=== PATIENT | male | born 1955 | race Caucasian/White ===

== ENCOUNTER → 2016-09-26 | Outpatient (CLI) | payer OTHER ==
[2016-09-26 13:31] LABS: BLOOD UREA NITROGEN 13 mg/dl (7-18); BUN/CREATININE RATIO 11.7 (10-20); CALCIUM 8.8 mg/dl (8.5-10.1); CARBON DIOXIDE 27 mmol/L (21-32); CHLORIDE 102 mmol/L (98-107); GLUCOSE 208 mg/dl (70-99); POTASSIUM 4.3 mmol/L (3.5-5.1); SODIUM 139 mmol/L (136-145)
== END | disposition home or self-care (01) ==
LOC: C.LABBC 11:23
PROVIDERS: ATTEND Family Medicine
DX: I10 Essential (primary) hypertension (principal)

== ENCOUNTER → 2017-02-07 | Outpatient (CLI) | payer OTHER ==
[2017-02-07 11:41] LABS: ALT/SGPT 35 U/L (12-78); AST/SGOT 19 U/L (15-37); BLOOD UREA NITROGEN 16 mg/dl (7-18); BUN/CREATININE RATIO 17.3 (10-20); CALCIUM 8.2 mg/dl (8.5-10.1); CARBON DIOXIDE 30 mmol/L (21-32); CHLORIDE 108 mmol/L (98-107); CREATININE 0.93 mg/dl (0.60-1.40); GLUCOSE 101 mg/dl (70-99); POTASSIUM 4.1 mmol/L (3.5-5.1); SODIUM 143 mmol/L (136-145)
[2017-02-07 11:46] LABS: ALB/GLOB RATIO 1.3 (0.9-2); ALKALINE PHOSPHATASE 40 U/L (45-117); CHOLESTEROL 269 mg/dl (0-200); CHOLESTEROL/HDL RATIO 4.9; HDL CHOLESTEROL 55 mg/dl; LDL CHOLESTEROL CALCULATED 189 mg/dl; PROSTATE SPECIFIC ANTIGEN 0.462 ng/ml (0.000-4.000); TRIGLYCERIDES 127 mg/dl (0-150); VERY LOW DENSITY LIPOPROT CALC 25 mg/dl
== END | disposition home or self-care (01) ==
LOC: C.LABBC 08:26
PROVIDERS: ATTEND Family Medicine
DX: Z12.5 Encounter for screening for malignant neoplasm of prostate (principal); I10 Essential (primary) hypertension; E78.5 Hyperlipidemia, unspecified

== ENCOUNTER → 2017-09-13 | Outpatient (CLI) | payer OTHER ==
[2017-09-13 11:32] LABS: ALBUMIN 3.7 gm/dl (3.4-5.0); ALT/SGPT 35 U/L (12-78); BLOOD UREA NITROGEN 15 mg/dl (7-18); CALCIUM 8.9 mg/dl (8.5-10.1); CARBON DIOXIDE 31 mmol/L (21-32); CHOLESTEROL 240 mg/dl (0-200); CREATININE 0.96 mg/dl (0.60-1.40); GLUCOSE 113 mg/dl (70-99); SODIUM 140 mmol/L (136-145)
[2017-09-13 11:34] LABS: ALKALINE PHOSPHATASE 38 U/L (45-117); AST/SGOT 21 U/L (15-37); LDL CHOLESTEROL CALCULATED 172 mg/dl
== END | disposition home or self-care (01) ==
LOC: C.LABBC 07:49
PROVIDERS: ATTEND Internal Medicine
DX: M25.50 Pain in unspecified joint (principal); E78.5 Hyperlipidemia, unspecified; I10 Essential (primary) hypertension

== ENCOUNTER → 2017-11-26 | Outpatient (CLI) | payer OTHER ==
[2017-11-26 11:02] LABS: ALBUMIN 3.6 gm/dl (3.4-5.0); ALT/SGPT 42 U/L (12-78); AST/SGOT 26 U/L (15-37); BLOOD UREA NITROGEN 15 mg/dl (7-18); CALCIUM 8.3 mg/dl (8.5-10.1); CARBON DIOXIDE 30 mmol/L (21-32); CHOLESTEROL 187 mg/dl (0-200); CREATININE 0.99 mg/dl (0.60-1.40); GLUCOSE 145 mg/dl (70-99); LDL CHOLESTEROL CALCULATED 122 mg/dl; SODIUM 139 mmol/L (136-145); TOTAL PROTEIN 6.5 gm/dl (6.4-8.2)
[2017-11-26 11:03] LABS: ALKALINE PHOSPHATASE 37 U/L (45-117)
== END | disposition home or self-care (01) ==
LOC: C.LABBC 08:03
PROVIDERS: ATTEND Internal Medicine
DX: I10 Essential (primary) hypertension (principal)

== ENCOUNTER → 2018-04-01 | Outpatient (CLI) | payer OTHER ==
[2018-04-01 10:36] LABS: BASO % 0.5 %; BASO ABS # 0.03 K/uL (0-0.2); EOS % 2.2 %; EOS ABS # 0.12 K/uL (0-0.5); HEMATOCRIT 41.9 % (42-52); HEMOGLOBIN 13.9 g/dL (14.0-18.0); IG# 0.01 K/uL (0.00-0.02); LYMPH % 31.1 %; LYMPH ABS # 1.71 K/uL (1.2-3.4); MEAN CELL VOLUME 86.2 fL (80-100); MEAN CORPUSCULAR HEMOGLOBIN 28.6 pg (25-34); MEAN CORPUSCULAR HGB CONC 33.2 g/dl (32-36); MEAN PLATELET VOLUME 9.3 fL (7.4-10.4); MONO % 9.1 %; NEUT % 56.9 %; NEUT ABS # 3.12 K/uL (1.4-6.5); PLATELET COUNT 280 K/uL (130-400); RED CELL DISTRIBUTION WIDTH CV 13.2 % (11.5-14.5); RED CELL DISTRIBUTION WIDTH SD 41.3 fL (36.4-46.3); WHITE BLOOD COUNT 5.49 K/uL (4.8-10.8)
[2018-04-01 10:52] LABS: ALBUMIN 3.7 gm/dl (3.4-5.0); ALKALINE PHOSPHATASE 38 U/L (45-117); ALT/SGPT 38 U/L (12-78); AST/SGOT 27 U/L (15-37); BLOOD UREA NITROGEN 15 mg/dl (7-18); CALCIUM 8.5 mg/dl (8.5-10.1); CARBON DIOXIDE 29 mmol/L (21-32); CHOLESTEROL 223 mg/dl (0-200); CREATININE 0.93 mg/dl (0.60-1.40); GLUCOSE 96 mg/dl (70-99); LDL CHOLESTEROL CALCULATED 147 mg/dl; POTASSIUM 4.1 mmol/L (3.5-5.1); SODIUM 139 mmol/L (136-145)
[2018-04-01 11:01] LABS: HEMOGLOBIN A1C 5.6 % (4.5-5.6)
== END | disposition home or self-care (01) ==
LOC: C.LABBC 07:59
PROVIDERS: ATTEND Internal Medicine
DX: E78.5 Hyperlipidemia, unspecified (principal); I10 Essential (primary) hypertension; Z11.59 Encounter for screening for other viral diseases; R73.01 Impaired fasting glucose

== ENCOUNTER → 2018-04-07 | Outpatient (CLI) | payer OTHER ==
--- NOTE | 2018-04-07 12:07 | DIAGNOSTIC IMAGING REPORT ---
C-SPINE ROUTINE 4 OR 5 VIEWS HISTORY: 63 years-old Male CERVICALGIA acute neck pain without reported trauma COMPARISON: None available TECHNIQUE: 5 views of the cervical spine FINDINGS: Moderate intervertebral disc space narrowing at C5-C6 with mild disc space narrowing at C3-C4. Multilevel spondylitic spurring with mild facet arthrosis. Degenerative changes result in at least mild right-sided foraminal stenosis at C3-C4. No acute fracture or subluxation. Imaged lung apices appear clear. No prevertebral soft tissue swelling. IMPRESSION: 1. No acute fracture or subluxation. 2. Degenerative changes as above including moderate intervertebral disc space narrowing at C5-C6. The above report was generated using voice recognition software. It may contain grammatical, syntax or spelling errors. Electronically signed by: Bowen Singer M.D. 04/07/2018 12:05 PM Dictated Date/Time: 04/07/2018 12:04 PM
== END | disposition home or self-care (01) ==
LOC: C.RADBC 11:39
PROVIDERS: ATTEND Internal Medicine
DX: M54.2 Cervicalgia (principal)

== ENCOUNTER 2023-08-12 19:42 | Inpatient (IN) ==
--- OUTSIDE RECORDS SUMMARY | 2023-08-12 19:46 | External Medical Summary | Continuity of Care Document ---
Author Name Unknown Organization [facility] [address] [facility] 2 [address] [id number] Care Team Providers Care [employer] Dean Name Role Phone Shanjose angelAlex Primary Care Physician [id number] Encounter [facility] [id number] Date(s): 04/02/23 - 04/02/23 [facility] [address] [facility] [address] [phone] [place] Discharge Disposition: Home or Self Care Attending Physician: MD [place] Cassandra Allergies, Adverse Reactions, Alerts Substance Reaction Severity Status Augmentin hives Active Medications Citrucel Start: 01/06/16 11:08:00, 2 g =, PO, bid Start Date: 01/06/16 Status: Ordered clobetasol 0.05% topical cream Start: 09/04/19 9:54:00 EST, 1 appl, topical, bid, Disp# 60 g, Refills: 1, apply to dermatitis on the trunk as needed, Pharmacy: [facility]/pharmacy #[id number] Start Date: 09/04/19 Stop Date: 10/02/19 Status: Ordered Crestor Start: 09/02/18 9:06:00 EST, 5 mg =, PO, qhs Start Date: 09/02/18 Status: Ordered doxycycline hyclate 100 mg oral tablet Start: 11/18/22 12:07:00 EDT, 1 tab, PO, bid, Disp# 60 tab, Refills: 2, take with food for rosacea flares, Pharmacy: [facility]/pharmacy #[id number] Start Date: 11/18/22 Stop Date: 02/16/23 Status: Ordered Multiple Vitamins oral capsule Start: 04/26/17 14:25:00, 1 cap, PO, Daily Start Date: 04/26/17 Status: Ordered mupirocin 2% topical ointment Start: 09/04/19 9:53:00 EST, See Instructions, Disp# 15 g, Refills: 1, apply to open areas as needed, Pharmacy: [facility][id number] Start Date: 09/04/19 Status: Ordered triamcinolone 0.1% topical cream Start: 11/01/17 12:12:00, 1 appl, topical, bid, Disp# 454 g, Refills: 0, apply to dermatitis on trunk,arms,legs, Pharmacy: [facility][id number] Start Date: 11/01/17 Status: Ordered Mental Status 04/02/23 Barriers to Learning one year None evide nt Mandatory Health Literacy Documentation Yes Health Literacy Communication Barriers N ever Primary Language Mohawk Problem List Condition Confirmation Course Effective Dates Status Health St atus Informant Nail fungus Confirmed Active Rosacea Confirmed Active Nevus Confirmed Active Skin lesion Confirmed Active Weight disorder Confirmed Active Procedures Procedure Date Related Diagnosis Body Site Status Punch biopsy 1 11/15/22 Completed Shave biopsy 2 04/26/22 Completed Colonoscopy 3 04/19/22 Completed Esophagogastroduodenoscopy 4 04/19/22 Completed Excision 5 03/29/22 Completed Excision 01/30/22 Completed Shave biopsy 6 12/21/21 Completed Excision 01/26/21 Completed Shave biopsy 7 01/11/21 Completed Shave biopsy and cauterization of skin 04/26/17 Completed Punch biopsy of skin 05/25/14 Comp leted Shave biopsy of skin 05/25/14 Comp leted 1left calf 2right volar wrist 3COLO to TI, hemorrhoids, repeat colo 5 years. 4EGD anntrum nl, gastric polyps bx of one 5excision of incendtal compound dysplastic nevi with moderate atypia right mid lower back 6right lower back 7posterior neck Social History Social History Type Response Smoking Status Never smoked cigaret barb Sex Male Patient Care team information Care Team Personnel Name: MD Tapia Paul Position: Referring DIRECT Member Role: Primary Care Provider Address: Address: [address] [place] [address] Care Team Related Persons Name: PHUONG TRAN Address: [address] [id number]
[2023-08-12] MEDS ORDERED: SODIUM CHLORIDE 0.9% 1,000 ML IV STA (20:03)
[2023-08-12 20:19] LABS: Basophils # (auto) 0.02 K/uL (0.00-0.20); Basophils % (auto) 0.2 %; Hematocrit (blood only) 43.2 % (42.0-52.0); Hemoglobin 14.3 g/dl (14.0-18.0); Immature Granulocytes # (auto) 0.03 K/uL (0.01-0.20); Immature Granulocytes % (auto) 0.3 %; Lymphocytes # (auto) 1.43 K/uL (1.20-3.40); Lymphocytes % (auto) 12.5 %; Mean Corpuscular Hemoglobin 26.1 pg (25.0-34.0); Mean Corpuscular Hgb Conc 33.1 g/dL (32.0-36.0); Mean Platelet Volume 8.8 fL (9.4-12.4); Monocytes # (auto) 0.51 K/uL (0.11-0.59); Monocytes % (auto) 4.5 %; Neutrophils # (auto) 9.46 K/uL (1.40-6.50); Neutrophils % (auto) 82.5 %; Platelet Count 299 K/uL (130-400); RDW Coefficient of Variation 13.5 % (11.5-14.5); RDW Standard Deviation 38.3 fL (36.4-46.3); Red Blood Count 5.47 M/uL (4.70-6.10); White Blood Count 11.45 K/ul (4.8-10.8)
[2023-08-12 20:34] LABS: Albumin Globulin Ratio 1.6 (0.9-2); Albumin Level 4.4 gm/dl (3.4-5.0); BUN Creatinine Ratio 16.7 (10-20); Bilirubin,Total 0.7 mg/dl (0.2-1.0); Calcium 9.1 mg/dl (8.6-10.3); Creatinine Clr Calc Pharmacy 88.3 ml/min; Est GFR (African American) 102.1 ml/min; Est GFR (Non-African American) 88.1 ml/min; Globulin 2.8 gm/dl (2.5-4.0); Total Protein 7.2 gm/dl (6.0-8.3)
--- NOTE | 2023-08-12 21:14 | Emergency Department Note ---
Impression & Plan SBO (small bowel obstruction), Abdominal pain ED Provider Note HISTORY OF PRESENT ILLNESS: Patient is a 68-year-old male presenting with epigastric abdominal pain and vomiting. Patient reports that he "has not felt well" since 12 noon. States that he vomited earlier today. He states that he has some discomfort in his epigastric region and diffusely across his abdomen. Denies any history of abdominal surgeries. Denies any fevers. Denies any diarrhea. Denies any recent sick contact exposures. He reports that he has been laid up in bed all day secondary to feeling generally unwell. ROS: as above PHYSICAL EXAM: Constitutional: Patient appears in no acute distress. HENT: Head: Normocephalic and atraumatic. Eyes: EOMI, PERRL Mouth/Throat: Mucous membranes moist. Neck: Trachea midline. Neck supple. Cardiovascular: RRR, No murmurs, rubs or gallops. Intact distal pulses. Pulmonary/Chest: No respiratory distress. Breath sounds clear and equal bilaterally. No wheezes or rales. Abdominal: Abdomen soft, no rebound or guarding. Generalized tenderness to palpation. Musculoskeletal: No edema, tenderness or deformity noted. Skin: Warm and dry. No rash, erythema, pallor or cyanosis Psychiatric: Appropriate mood and affect for situation. Neurological: Alert and keenly responsive. CN II-XII grossly intact, moving all extremities equally and fully. MDM: - Vitals signs stable. - History obtained via patient. Patient presents with epigastric abdominal pain and vomiting. Patient reports has not been feeling well since noon today. He vomited earlier today. Denies any history of abdominal surgeries. Denies any fevers or diarrhea - Chronic conditions affecting care: HTN; HLD; hypothyroidism - Differential diagnoses include, but are not limited to: viral syndrome; small bowel obstruction; colitis; cholecystitis; appendicitis - Order placed for continuous cardiac monitoring. At this time, monitor showed rate of 83 bpm with normal sinus rhythm, per my interpretation. - External medical records reviewed. Primary care visit note dated 01/28/2022 was reviewed. Patient had been evaluated for left mid quadrant abdominal pain. He had a referral to GI at that time. - Laboratory workup interpreted by myself showed leukocytosis (WBC 12.42) with left shift; slight leukocytosis (WBC 11.45); stable electrolytes; normal lipase - UA negative for infection - CT abdomen/pelvis with IV contrast showed mild to moderate small bowel obstruction with transition point - Patient given 1L NS and 4 mg IV zofran. On reassessment, patient has not vomited since being here. - Discussed results with patient. He has not vomited since being here, so held off on NG tube at this time. - Discussion was had with medical care manager about patient's case and need for admission - Hospitalist, Dr. Rodríguez, consulted for admission - Patient admitted [facility] for further evaluation and management. ASSESSMENT AND PLAN: Diagnosis: small bowel obstruction; abdominal pain Plan: admit Past Med/Surg History Medical History Arthralgia of multiple sites Back pain Cervicalgia Elevated fasting glucose High frequency hearing loss of both ears History of malignant melanoma HTN (hypertension) Hyperglycemia Hyperlipidemia Hypothyroidism Rosacea Tinnitus Surgical History History of arthroscopic knee surgery Family History Father Coronary heart disease Dyslipidemia FERN (obstructive sleep apnea) Myocardial infarction Brother Hypertension Mother Hay fever Sister Hypertension Other No pertinent family history Denies family history of Ovarian cancer Prostate cancer Breast cancer Colorectal cancer Social History Smoking Status: Never smoker Second Hand Exposure: No; Do You Dip or Chew Tobacco: No; Hx Alcohol Use: Yes Alcohol type: wine Alcohol Intake Frequency: 2-3 x/Week Alcohol Intake Frequency Comment: weekends he drinks Hx Substance Use: No Preferred Language: Swiss Visual Impairment: Limited Hearing Ability: Normal marital status: Current Living Situation: Spouse current occupational status: employed current occupation: [employer] How many Children do You have: 2 Feels Safe at Home: Yes Childhood Exposure to Second-Hand Smoke: No caffeine: Yes (coffee) Dental Care, Regularly: Yes Physical Activity Frequency: 3-4 Times per Week Seatbelt Use: always Sunscreen Use: Yes Allergies Allergies Allergy/AdvReac Type Severity Reaction Status Date / Time hydrochlorothiazide Allergy Unknown Rash Verified 01/30/23 15:00 amoxicillin [From Augmentin] AdvReac Rash Unverified 01/30/23 15:00 clavulanic acid AdvReac Rash Unverified 01/30/23 15:00 [From Augmentin] Home Meds Home Medications Medication Instructions Recorded Confirmed famotidine 10 mg tablet 10 mg PO BID 01/30/23 01/30/23 Previous Rx's Medication Instructions Recorded levothyroxine 25 mcg tablet 25 mcg PO DAILY #90 tabs 01/22/23 gabapentin 300 mg capsule See Rx Instructions .Route 03/20/23 .COMPLEX #30 caps rosuvastatin 5 mg tablet See Rx Instructions .Route 03/20/23 .COMPLEX #90 tabs omeprazole 40 mg capsule,delayed 40 mg PO DAILY #90 caps 04/08/23 release Results & Data (ED) Vital Signs Vital Signs - 24 hr 08/12/23 19:48 08/12/23 22:37 08/12/23 22:40 Temperature 36.4 C L Temperature Source Temporal Artery Scan Pulse Rate 76 79 Pulse Rate [Apical] 82 Pulse Rhythm [Apical] Regular Pulse Strength [Apical] Normal Respiratory Rate 18 16 Respiratory Effort / Characteristics Non-Labored Spontaneous Respiratory Depth Normal Normal Respiratory Pattern Regular Blood Pressure 122/60 Blood Pressure [Right Arm] 164/84 H Blood Pressure Mean 80 Blood Pressure Mean [Right Arm] 110 Blood Pressure Position [Right Arm] Semi-fowlers Pulse Oximetry 96 97 Oxygen Delivery Method Room Air Room Air Sepsis Recent Fever Within 48 Hours No Sepsis New/Unexplained Change in Mental Status No Sepsis Action Taken by Nursing No Action Required Laboratory Data 08/12/23 20:05 08/12/23 20:05 Lab Results 08/12/23 08/12/23 Range/Units 20:05 21:38 WBC 11.45 H (4.8-10.8) K/ul RBC 5.47 (4.70-6.10) M/uL Hgb 14.3 (14.0-18.0) g/dl Hct 43.2 (42.0-52.0) % MCV 79.0 L (80.0-100.0) fL MCH 26.1 (25.0-34.0) pg MCHC 33.1 (32.0-36.0) g/dL RDW Std Deviation 38.3 (36.4-46.3) fL RDW Coeff of Bette 13.5 (11.5-14.5) % Plt Count 299 (130-400) K/uL MPV 8.8 L (9.4-12.4) fL Immature Gran % (Auto) 0.3 % Neut % (Auto) 82.5 % Lymph % (Auto) 12.5 % [place] % (Auto) 4.5 % Eos % (Auto) 0.0 % Baso % (Auto) 0.2 % Neut # (Auto) 9.46 H (1.40-6.50) K/uL Lymph # (Auto) 1.43 (1.20-3.40) K/uL [place] # (Auto) 0.51 (0.11-0.59) K/uL Eos # (Auto) 0.00 (0.00-0.50) K/uL Baso # (Auto) 0.02 (0.00-0.20) K/uL Immature Gran # (Auto) 0.03 (0.01-0.20) K/uL Sodium 138 (136-145) mmol/L Potassium 4.0 (3.5-5.1) mmol/L Chloride 102 (98-107) mmol/L Carbon Dioxide 26 (21-32) mmol/L Anion Gap 10 (3-11) BUN 15 (6-23) mg/dl Creatinine 0.90 (0.6-1.4) mg/dl Est Cr Clr Drug Dosing 88.3 ml/min Est GFR ( Amer) 102.1 ml/min Est GFR (Non-Af Amer) 88.1 ml/min BUN/Creatinine Ratio 16.7 (10-20) Glucose 159 H (70-99(Fasting)) mg/dl Calcium 9.1 (8.6-10.3) mg/dl Total Bilirubin 0.7 (0.2-1.0) mg/dl AST 27 (13-39) U/L ALT 28 (7-52) U/L Alkaline Phosphatase 43 (34-104) U/L Total Protein 7.2 (6.0-8.3) gm/dl Albumin 4.4 (3.4-5.0) gm/dl Globulin 2.8 (2.5-4.0) gm/dl Albumin/Globulin Ratio 1.6 (0.9-2) Lipase 18 (11-82) U/L Urine Color Yellow Urine Appearance Clear (Clear) Urine pH 6.5 (4.5-7.5) Ur Specific [place] 1.028 (1.000-1.030) Urine Protein 1+ H (Negative) Urine Glucose (UA) Negative (Negative) Urine Ketones 3+ H (Negative) Urine Blood Negative (Negative) Urine Nitrite Negative (Negative) Urine Bilirubin Negative (Negative) Urine Urobilinogen Negative (Negative) Ur Leukocyte Esterase Negative (Negative) Urine WBC (Auto) 1-5 (0-5) /hpf Urine RBC (Auto) 0-4 (0-4) /hpf U Hyaline Cast (Auto) 1-5 (0-5) /lpf U Epithel Cells (Auto) >30 H (0-5) /lpf Urine Bacteria (Auto) Negative (Negative) Ur Renal Epithelial Cell Not Reportable Urine Mucus Present A (None Prsent) Administered Medications Discontinued Medications Sodium Chloride (Nss) 1,000 mls @ 999 mls/hr IV .Q1H1M STA Stop: 08/12/23 21:03 Last Admin: 08/12/23 20:42 Dose: 999 mls/hr Documented By: KAILYN Ioversol (Optiray 320 500ml) 80 ml IV ONCE ONE Stop: 08/12/23 21:25 Last Admin: 08/12/23 21:25 Dose: 80 ml Documented By: CHRISTOPHER Imaging Data Radiologist's Impression: Abdomen/Pelvis CT 08/12/23 21:12 Exam(s): CT ABDOMEN + PELVIS With Contrast IV Amt: 80ML OPTIRAY 320 EXAM: CT Abdomen and Pelvis With Intravenous Contrast CLINICAL HISTORY: Reason for exam: epigastric pain; vomiting. TECHNIQUE: Axial computed tomography images of the abdomen and pelvis with intravenous contrast. CTDI is 25.92 mGy and DLP is 1329.7 mGy-cm. Automated exposure control was utilized for the study. A dose lowering technique was utilized adhering to the principles of ALARA. CONTRAST: Patient received 80ML OPTIRAY 320 of IV contrast COMPARISON: No relevant prior studies available. FINDINGS: Lung bases: Unremarkable. No mass. No consolidation. ABDOMEN: Liver: Unremarkable. No mass. Gallbladder and bile ducts: Unremarkable. No calcified stones. No ductal dilation. Pancreas: Unremarkable. No mass. No ductal dilation. Spleen: Unremarkable. No splenomegaly. Adrenals: Unremarkable. No mass. Kidneys and ureters: Unremarkable. No solid mass. No hydronephrosis. Stomach and bowel: Mild to moderate small bowel obstruction with a transition in the midline pelvis. Trace free fluid within the dependent pelvis likely reactive in nature. No mucosal thickening. PELVIS: Appendix: No findings to suggest acute appendicitis. Bladder: Unremarkable. No mass. Reproductive: Unremarkable as visualized. ABDOMEN and PELVIS: Intraperitoneal space: No free air. Bones/joints: No acute fracture. No dislocation. Soft tissues: Unremarkable. Vasculature: Unremarkable. No abdominal aortic aneurysm. Lymph nodes: Unremarkable. No enlarged lymph nodes. IMPRESSION: Mild to moderate small bowel obstruction with transition point in the midline pelvis Electronically signed by: Sigifredo Teran MD 08/12/23 21:37 PM Discharge Plan Visit Data Chief Complaint: GI Assessment Stated Complaint: ABDOMINAL PAIN, VOMITING ED Provider: Glenny Gordon Discharge Problem: SBO (small bowel obstruction), Abdominal pain Forms Stand Alone Forms: [facility] [employer] Info Prescriptions Prescriptions: No Action levothyroxine 25 mcg tablet 25 mcg PO DAILY Qty: 90 2RF rosuvastatin 5 mg tablet See Rx Instructions .ROUTE .COMPLEX Qty: 90 3RF Dose Instruction: TAKE 1 TABLET BY MOUTH EVERY DAY Rx Instructions: TAKE 1 TABLET BY MOUTH EVERY DAY gabapentin 300 mg capsule See Rx Instructions .ROUTE .COMPLEX Qty: 30 5RF Dose Instruction: TAKE 1 CAPSULE BY MOUTH AT BEDTIME NEEDED FOR NEUROPATHY Rx Instructions: TAKE 1 CAPSULE BY MOUTH AT BEDTIME NEEDED FOR NEUROPATHY omeprazole 40 mg capsule,delayed release(DR/EC) 40 mg PO DAILY Qty: 90 3RF famotidine 10 mg tablet 10 mg PO BID Referrals Referrals: Radha Bowens [[employer]] -
[2023-08-12] MEDS ORDERED: OPTIRAY 320 500ml IV ONE (21:24)
--- NOTE | 2023-08-12 21:38 | CT Scan Report ---
Exam(s): CT ABDOMEN + PELVIS With Contrast IV Amt: 80ML OPTIRAY 320 EXAM: CT Abdomen and Pelvis With Intravenous Contrast CLINICAL HISTORY: Reason for exam: epigastric pain; vomiting. TECHNIQUE: Axial computed tomography images of the abdomen and pelvis with intravenous contrast. CTDI is 25.92 mGy and DLP is 1329.7 mGy-cm. Automated exposure control was utilized for the study. A dose lowering technique was utilized adhering to the principles of ALARA. CONTRAST: Patient received 80ML OPTIRAY 320 of IV contrast COMPARISON: No relevant prior studies available. FINDINGS: Lung bases: Unremarkable. No mass. No consolidation. ABDOMEN: Liver: Unremarkable. No mass. Gallbladder and bile ducts: Unremarkable. No calcified stones. No ductal dilation. Pancreas: Unremarkable. No mass. No ductal dilation. Spleen: Unremarkable. No splenomegaly. Adrenals: Unremarkable. No mass. Kidneys and ureters: Unremarkable. No solid mass. No hydronephrosis. Stomach and bowel: Mild to moderate small bowel obstruction with a transition in the midline pelvis. Trace free fluid within the dependent pelvis likely reactive in nature. No mucosal thickening. PELVIS: Appendix: No findings to suggest acute appendicitis. Bladder: Unremarkable. No mass. Reproductive: Unremarkable as visualized. ABDOMEN and PELVIS: Intraperitoneal space: No free air. Bones/joints: No acute fracture. No dislocation. Soft tissues: Unremarkable. Vasculature: Unremarkable. No abdominal aortic aneurysm. Lymph nodes: Unremarkable. No enlarged lymph nodes. IMPRESSION: Mild to moderate small bowel obstruction with transition point in the midline pelvis Electronically signed by: Sigifredo Teran MD 08/12/23 21:37 PM
[2023-08-12 22:13] LABS: Appearance Urine Clear (Clear); Bacteria Urine Automated Negative (Negative); Bilirubin Urine Negative (Negative); Blood Urine Negative (Negative); Color Urine Yellow; Epithelial Cell Urine Auto >30 /lpf (0-5); Glucose Urine UA Negative (Negative); Ketones Urine 3+ (Negative); Leukocyte Esterase Urine Negative (Negative); Nitrite Urine Negative (Negative); Protein Urine 1+ (Negative); RBC Urine Automated 0-4 /hpf (0-4); Specific Gravity Urine 1.028 (1.000-1.030); Urobilinogen Urine Negative (Negative); pH Urine 6.5 (4.5-7.5)
[2023-08-12 22:27] LABS: Mucus Urine Present (None Prsent)
--- NOTE | 2023-08-12 23:24 | History & Physical Report ---
Date of Service August 12, 2023 Assessment & Plan (1) SBO (small bowel obstruction): Plan: 68yo Male with PMH peripheral neuropathy HTN HLD GERD hypothyroidism here for concern SBO. SBO -noted on CT A/P -NPO -admit to med/surg -ordered NG tube -ordered NSS 80mls/h -consult placed to general surgery -prn tylenol toradol for pain -prn zofran HLD -hold rosuvastatin Neuropathy -hold gabapentin Hypothyroidism -hold levothyroxine GERD -continue protonix FENa: NPO Code Status: full DVT PPX: ambulatory Dispo: med/surg Amina Cristobal D.O. PGY 3, FCM (2) Hyperlipidemia: (3) HTN (hypertension): (4) Hypothyroidism: History of Present Illness Primary Care Provider: Ingrid Roberts MD 68yo Male with PMH peripheral neuropathy HTN HLD GERD hypothyroidism here for concern SBO. Patient states he has had symptoms on and off over the past month that would usually resolve without intervention. Today at noon he developed abd pain had 1 episode vomiting loss of appetite nausea that persisted, came to ED. Patient states in ED he was given fluids pain medication and nausea medication which helped his symptoms. Patient denies history of abdominal surgeries or injuries. Has never had SBO before. Has not had bowel movement or flatulence this morning. Patient denies any fever or SOB. Allergies Allergy/AdvReac Type Severity Reaction Status Date / Time hydrochlorothiazide Allergy Unknown Rash Verified 01/30/23 15:00 amoxicillin [From Augmentin] AdvReac Rash Unverified 01/30/23 15:00 clavulanic acid AdvReac Rash Unverified 01/30/23 15:00 [From Augmentin] Home Medications Medication Instructions Recorded Confirmed Type levothyroxine 25 mcg tablet 25 mcg PO DAILY #90 tabs 01/22/23 01/30/23 Rx famotidine 10 mg tablet 10 mg PO BID 01/30/23 01/30/23 History gabapentin 300 mg capsule See Rx Instructions .Route 03/20/23 Rx .COMPLEX #30 caps rosuvastatin 5 mg tablet See Rx Instructions .Route 03/20/23 Rx .COMPLEX #90 tabs omeprazole 40 mg capsule,delayed 40 mg PO DAILY #90 caps 04/08/23 Rx release Past Med/Surg History Medical History History of malignant melanoma Hypothyroidism Arthralgia of multiple sites Cervicalgia Elevated fasting glucose High frequency hearing loss of both ears Hyperglycemia Hyperlipidemia HTN (hypertension) Rosacea Tinnitus Back pain Surgical History History of arthroscopic knee surgery Family History Father Coronary heart disease Dyslipidemia FERN (obstructive sleep apnea) Myocardial infarction Brother Hypertension Mother Hay fever Sister Hypertension Other No pertinent family history Denies family history of Ovarian cancer Prostate cancer Breast cancer Colorectal cancer Social History Smoking Status: Never smoker Second Hand Exposure: No; Do You Dip or Chew Tobacco: No; Hx Alcohol Use: Yes Alcohol type: wine Alcohol Intake Frequency: 2-3 x/Week Alcohol Intake Frequency Comment: weekends he drinks Hx Substance Use: No Preferred Language: [place] Visual Impairment: Limited Hearing Ability: Normal marital status: Current Living Situation: Spouse current occupational status: employed current occupation: [employer] How many Children do You have: 2 Feels Safe at Home: Yes Childhood Exposure to Second-Hand Smoke: No caffeine: Yes (coffee) Dental Care, Regularly: Yes Physical Activity Frequency: 3-4 Times per Week Seatbelt Use: always Sunscreen Use: Yes Review of Systems Review of Systems: All systems reviewed & are unremarkable except as noted in HPI & below Physical Exam Constitutional: WD/WN, vitals as above Eyes: PERRL, conjunctivae normal, anicteric sclerae ENMT: external ear and nose normal, oropharynx normal Neck: trachea midline, no thyromegaly Respiratory: normal respiratory effort, lungs clear to auscultation Cardiovascular: RRR, no murmur, no edema Gastrointestinal (Abdomen): Inspection/Auscultation: abdomen normal to inspection and + hypoactive bowel sounds Percussion/Palpation: + abdomen tender (mild, periumbilical) Skin: no rashes, warm and dry Results & Data Results & Data Vital Signs (Past 12 Hours) Vital Signs Temp Pulse Pulse Resp BP BP Pulse Ox 08/12/23 22:40 82 16 164/84 H 97 08/12/23 22:37 79 08/12/23 19:48 36.4 C L 76 18 122/60 96 O2 Del Method 08/12/23 22:40 Room Air 08/12/23 22:37 08/12/23 19:48 Room Air Laboratory Results Laboratory Results WBC 11.45 K/ul (4.8-10.8) H 08/12/23 20:05 RBC 5.47 M/uL (4.70-6.10) 08/12/23 20:05 Hgb 14.3 g/dl (14.0-18.0) 08/12/23 20:05 Hct 43.2 % (42.0-52.0) 08/12/23 20:05 MCV 79.0 fL (80.0-100.0) L 08/12/23 20:05 MCH 26.1 pg (25.0-34.0) 08/12/23 20:05 MCHC 33.1 g/dL (32.0-36.0) 08/12/23 20:05 RDW Std Deviation 38.3 fL (36.4-46.3) 08/12/23 20:05 RDW Coeff of Bette 13.5 % (11.5-14.5) 08/12/23 20:05 Plt Count 299 K/uL (130-400) 08/12/23 20:05 MPV 8.8 fL (9.4-12.4) L 08/12/23 20:05 Immature Gran % (Auto) 0.3 % 08/12/23 20:05 Neut % (Auto) 82.5 % 08/12/23 20:05 Lymph % (Auto) 12.5 % 08/12/23 20:05 Major % (Auto) 4.5 % 08/12/23 20:05 Eos % (Auto) 0.0 % 08/12/23 20:05 Baso % (Auto) 0.2 % 08/12/23 20:05 Neut # (Auto) 9.46 K/uL (1.40-6.50) H 08/12/23 20:05 Lymph # (Auto) 1.43 K/uL (1.20-3.40) 08/12/23 20:05 Major # (Auto) 0.51 K/uL (0.11-0.59) 08/12/23 20:05 Eos # (Auto) 0.00 K/uL (0.00-0.50) 08/12/23 20:05 Baso # (Auto) 0.02 K/uL (0.00-0.20) 08/12/23 20:05 Immature Gran # (Auto) 0.03 K/uL (0.01-0.20) 08/12/23 20:05 Sodium 138 mmol/L (136-145) 08/12/23 20:05 Potassium 4.0 mmol/L (3.5-5.1) 08/12/23 20:05 Chloride 102 mmol/L (98-107) 08/12/23 20:05 Carbon Dioxide 26 mmol/L (21-32) 08/12/23 20:05 Anion Gap 10 (3-11) 08/12/23 20:05 BUN 15 mg/dl (6-23) 08/12/23 20:05 Creatinine 0.90 mg/dl (0.6-1.4) 08/12/23 20:05 Est Cr Clr Drug Dosing 88.3 ml/min 08/12/23 20:05 Est GFR ( Amer) 102.1 ml/min 08/12/23 20:05 Est GFR (Non-Af Amer) 88.1 ml/min 08/12/23 20:05 BUN/Creatinine Ratio 16.7 (10-20) 08/12/23 20:05 Glucose 159 mg/dl (70-99(Fasting)) H 08/12/23 20:05 Calcium 9.1 mg/dl (8.6-10.3) 08/12/23 20:05 Total Bilirubin 0.7 mg/dl (0.2-1.0) 08/12/23 20:05 AST 27 U/L (13-39) 08/12/23 20:05 ALT 28 U/L (7-52) 08/12/23 20:05 Alkaline Phosphatase 43 U/L (34-104) 08/12/23 20:05 Total Protein 7.2 gm/dl (6.0-8.3) 08/12/23 20:05 Albumin 4.4 gm/dl (3.4-5.0) 08/12/23 20:05 Globulin 2.8 gm/dl (2.5-4.0) 08/12/23 20:05 Albumin/Globulin Ratio 1.6 (0.9-2) 08/12/23 20:05 Lipase 18 U/L (11-82) 08/12/23 20:05 Urine Color Yellow 08/12/23 21:38 Urine Appearance Clear (Clear) 08/12/23 21:38 Urine pH 6.5 (4.5-7.5) 08/12/23 21:38 Ur Specific [place] 1.028 (1.000-1.030) 08/12/23 21:38 Urine Protein 1+ (Negative) H 08/12/23 21:38 Urine Glucose (UA) Negative (Negative) 08/12/23 21:38 Urine Ketones 3+ (Negative) H 08/12/23 21:38 Urine Blood Negative (Negative) 08/12/23 21:38 Urine Nitrite Negative (Negative) 08/12/23 21:38 Urine Bilirubin Negative (Negative) 08/12/23 21:38 Urine Urobilinogen Negative (Negative) 08/12/23 21:38 Ur Leukocyte Esterase Negative (Negative) 08/12/23 21:38 Urine WBC (Auto) 1-5 /hpf (0-5) 08/12/23 21:38 Urine RBC (Auto) 0-4 /hpf (0-4) 08/12/23 21:38 U Hyaline Cast (Auto) 1-5 /lpf (0-5) 08/12/23 21:38 U Epithel Cells (Auto) >30 /lpf (0-5) H 08/12/23 21:38 Urine Bacteria (Auto) Negative (Negative) 08/12/23 21:38 Ur Renal Epithelial Cell Not Reportable 08/12/23 21:38 Urine Mucus Present (None Prsent) A 08/12/23 21:38 Impressions Abdomen/Pelvis CT 08/12/23 21:12 Exam(s): CT ABDOMEN + PELVIS With Contrast IV Amt: 80ML OPTIRAY 320 EXAM: CT Abdomen and Pelvis With Intravenous Contrast CLINICAL HISTORY: Reason for exam: epigastric pain; vomiting. TECHNIQUE: Axial computed tomography images of the abdomen and pelvis with intravenous contrast. CTDI is 25.92 mGy and DLP is 1329.7 mGy-cm. Automated exposure control was utilized for the study. A dose lowering technique was utilized adhering to the principles of ALARA. CONTRAST: Patient received 80ML OPTIRAY 320 of IV contrast COMPARISON: No relevant prior studies available. FINDINGS: Lung bases: Unremarkable. No mass. No consolidation. ABDOMEN: Liver: Unremarkable. No mass. Gallbladder and bile ducts: Unremarkable. No calcified stones. No ductal dilation. Pancreas: Unremarkable. No mass. No ductal dilation. Spleen: Unremarkable. No splenomegaly. Adrenals: Unremarkable. No mass. Kidneys and ureters: Unremarkable. No solid mass. No hydronephrosis. Stomach and bowel: Mild to moderate small bowel obstruction with a transition in the midline pelvis. Trace free fluid within the dependent pelvis likely reactive in nature. No mucosal thickening. PELVIS: Appendix: No findings to suggest acute appendicitis. Bladder: Unremarkable. No mass. Reproductive: Unremarkable as visualized. ABDOMEN and PELVIS: Intraperitoneal space: No free air. Bones/joints: No acute fracture. No dislocation. Soft tissues: Unremarkable. Vasculature: Unremarkable. No abdominal aortic aneurysm. Lymph nodes: Unremarkable. No enlarged lymph nodes. IMPRESSION: Mild to moderate small bowel obstruction with transition point in the midline pelvis Electronically signed by: Sigifredo Teran MD 08/12/23 21:37 PM Supervising Physician Co-Signing Physician Notes Patient seen and examined, chart reviewed, case discussed with Dr. Cristobal and I agree with the assessment and plan as above. In brief, patient is a 68yo male presenting with SBO. He has had intermittent symptoms for the last several weeks which would resolve on their own. However, has had persistent pain with nausea and one episode of vomiting today. Last BM was yesterday 08/11/23 - small. He passed a small amount of flatus this AM 08/12. No prior abdominal surgeries. No history of bowel obstructions. Colonoscopy in 2021 with tubular adenoma, recommended followup in 5 yrs 2026. On exam patient appears anxious but in NAD, pain has largely resolved HEENT - MMM, Neck supple Heart - +S1/S2, regular, no m/r/g Lungs - CTA Abd - diminished bowel sounds, mildly distended, soft, diffuse tenderness to palpation, most in mid-abdomen, without rebound/guarding/peritonitis Ext - warm, well perfused Labs and images reviewed Assessment/Plan 68yo male presenting with SBO. No prior abdominal surgeries. Recent colonoscopy in 2021. No reported change in diet. -Admit to medical -Keep NPO -NGT ordered to LIWS -Pain control and antiemetics as needed -IVF -General Surgery consultation appreciated -Remainder of plan as above Resident Activity Tracking Resident Involvement: Resident Care Provided Care Provided: Adult Hospital Medicine (2) Hyperlipidemia Hyperlipidemia type: mixed hyperlipidemia Qualified Code(s): E78.2 - Mixed hyperlipidemia (3) HTN (hypertension) Hypertension type: essential hypertension Qualified Code(s): I10 - Essential (primary) hypertension
[2023-08-12] MEDS ORDERED: KETOROLAC TROMETHAMINE 15 MG/ML VIAL IV PRN (23:29)
[2023-08-12] MEDS ORDERED: ACETAMINOPHEN 1,000 MG/100 ML VIAL IV PRN (23:29)
[2023-08-13] MEDS: SODIUM CHLORIDE 0.9% 1,000 ML IV SCH ×2 (00:14→12:59)
--- NOTE | 2023-08-13 01:53 | Billing Data ---
Date of Service August 12, 2023 Coding Level of Care Code 23372 INT INP/OBS CARE
[2023-08-13] MEDS ORDERED: ONDANSETRON INJ 2 MG/ML 2 ML VIAL IV PRN (02:21)
--- NOTE | 2023-08-13 07:21 | XRay Report ---
KUB CLINICAL HISTORY: confirm NG tube placement COMPARISON STUDY: CT of the abdomen and pelvis August 12, 2023. FINDINGS: The tip of the nasogastric tube is within the body of the stomach. Dilated small bowel loop s are partially imaged on this exam. IMPRESSION: 1. Tip of nasogastric tube within the body of the stomach. 2. Evidence for a small bowel obstruction, better depicted on CT of August 12, 2023. ACT 112: Negative or not required by law. Electronically signed by: Matthew Brenner M.D. 08/13/2023 7:20 AM
[2023-08-13 07:35] LABS: Hematocrit (blood only) 40.9 % (42.0-52.0); Hemoglobin 13.3 g/dl (14.0-18.0); Mean Corpuscular Hemoglobin 26.1 pg (25.0-34.0); Mean Corpuscular Hgb Conc 32.5 g/dL (32.0-36.0); Mean Corpuscular Volume 80.2 fL (80.0-100.0); Mean Platelet Volume 9.2 fL (9.4-12.4); Platelet Count 270 K/uL (130-400); RDW Coefficient of Variation 13.7 % (11.5-14.5); RDW Standard Deviation 39.8 fL (36.4-46.3); White Blood Count 9.94 K/ul (4.8-10.8)
[2023-08-13 07:50] LABS: BUN Creatinine Ratio 15.8 (10-20); Calcium 8.4 mg/dl (8.6-10.3); Creatinine Clr Calc Pharmacy 104.4 ml/min; Est GFR (African American) 109.4 ml/min; Est GFR (Non-African American) 94.4 ml/min; Potassium 3.7 mmol/L (3.5-5.1)
[2023-08-13] MEDS ORDERED: MoRPHine SULFATE 2 MG/ML CARP IV PRN (09:12)
[2023-08-13] MEDS ORDERED: MoRPHine SULFATE 4 MG/ML 1 ML CARP\\VIAL IV PRN (09:12)
--- NOTE | 2023-08-13 09:16 | Hospitalist Progress Note ---
Date of Service August 13, 2023 Assessment & Plan (1) SBO (small bowel obstruction): Plan: 68yo Male with PMH peripheral neuropathy HTN HLD GERD hypothyroidism SBO confirmed on CT abdomen /pelvis. -NPO, NGT to LIS, -ordered NSS 80mls/h -consult placed to general surgery conservative management at this time -prn tylenol toradol for pain -prn zofran Neuropathy -hold gabapentin GERD -continue protonix (2) Hypothyroidism: Plan: Hypothyroidism chronic and stable -hold levothyroxine, if prolongued npo status will have iv synthjroid replacement Plan Code Status: full DVT PPX: sc strt in pm 08/13/[id number] Admission and Anticipated Discharge Date Admission Date: August 12, 2023 Subjective Patient seen in the presence of his no focal complaints or problems at this time Physical Exam Physical Exam: Patient is comfortable Abdomen is soft hypoactive bowel sounds Lungs are clear Results & Data Results & Data Vital Signs (Past 12 Hours) Vital Signs Temp Pulse Pulse Resp BP Pulse Ox O2 Del Method 08/13/23 08:11 98.4 F 70 18 155/82 H 95 Room Air 08/13/23 02:25 Room Air 08/13/23 02:25 98.4 F 85 16 148/78 H 97 Room Air 08/13/23 00:30 79 16 151/90 H 96 Room Air 08/12/23 23:30 73 16 160/86 H 96 Room Air 08/12/23 22:40 82 16 164/84 H 97 Room Air 08/12/23 22:37 79 Laboratory Results Reviewed CBC Reviewed chemistry Reviewed results of today's KUB discussed with patient PG Care Time/CCT Total # of Minutes Spent Total Time Spent with Patient: Total time spent is greater than 50% in coordination of care (as documented) at patient's floor/unit and/or counseling patient: Coding Level of Care Code 12368 SUB INP/OBS CARE 2/35MIN Diagnoses SBO (small bowel obstruction) K56.609 Hypothyroidism E03.9
[2023-08-13] MEDS ORDERED: FIRST - Mouthwash BLM 119 ML PO SCH (10:30)
[2023-08-13] MEDS ORDERED: CHLORASEPTIC (PHENOL) 1.4% SOLN 180 ML BTL MT PRN (11:26)
--- NOTE | 2023-08-13 11:51 | Surgery Consultation ---
Date of Consultation August 13, 2023 Assessment & Plan (1) SBO (small bowel obstruction): Assessment: Patient is a 68 years old gentleman who admitted to hospital for small bowel obstruction. Patient had a CT scan diagnosis small bowel obstruction. KUB today improvement of small bowel obstruction. Plan: No urgent surgical intervention indication now. Conservative treatment, NPO, IV fluid, control pain, repeat labs and KUB tomorrow, also I discussed with patient about the possible surgical treatment if patient symptoms gets worse. patient understood. He agreed to treatment plan. I answered all questions. will follow History of Present Illness Reason for Consultation: SBO Requesting Physician: Amina Cristobal DO Attending Physician: Yogesh Stevens MD History of Present Illness CC: Abdominal pain HPI: Patient is a 68 years old gentleman with past medical history of HTN, polyneuropathy, hypothyroidism, and hyperlipidemia. Patient was admitted to hospital for small bowel obstruction. Patient started to have abdominal pain yesterday around noon. with nausea and vomiting one time. Patient had the same episode abdominal pain in November and March of this year. The pain was gone after he slept 1-2 days. now pt feels better, no significant abdominal pain, no nausea or vomiting, no fever or chills. pt has never had abdominal surgery in the past. NG tube minimal out put. CT scan - IMPRESSION: Mild to moderate small bowel obstruction with transition point in the midline pelvis today 08/13/2023, KUB- IMPRESSION: 1. Tip of nasogastric tube within the body of the stomach. 2. Evidence for a small bowel obstruction, better depicted on CT of August 12, 2023. Allergies Allergy/AdvReac Type Severity Reaction Status Date / Time hydrochlorothiazide Allergy Unknown Rash Verified 01/30/23 15:00 amoxicillin [From Augmentin] AdvReac Rash Unverified 01/30/23 15:00 clavulanic acid AdvReac Rash Unverified 01/30/23 15:00 [From Augmentin] Home Medications Medication Instructions Recorded Confirmed Type levothyroxine 25 mcg tablet 25 mcg PO DAILY #90 tabs 01/22/23 01/30/23 Rx famotidine 10 mg tablet 10 mg PO BID 01/30/23 01/30/23 History gabapentin 300 mg capsule See Rx Instructions .Route 03/20/23 Rx .COMPLEX #30 caps rosuvastatin 5 mg tablet See Rx Instructions .Route 03/20/23 Rx .COMPLEX #90 tabs omeprazole 40 mg capsule,delayed 40 mg PO DAILY #90 caps 04/08/23 Rx release Patient History Medical History History of malignant melanoma Hypothyroidism Arthralgia of multiple sites Cervicalgia Elevated fasting glucose High frequency hearing loss of both ears Hyperglycemia Hyperlipidemia HTN (hypertension) Rosacea Tinnitus Back pain Surgical History History of arthroscopic knee surgery Family History Father Coronary heart disease Dyslipidemia FERN (obstructive sleep apnea) Myocardial infarction Brother Hypertension Mother Hay fever Sister Hypertension Other No pertinent family history Denies family history of Ovarian cancer Prostate cancer Breast cancer Colorectal cancer Social History Smoking Status: Never smoker Second Hand Exposure: No; Do You Dip or Chew Tobacco: No; Hx Alcohol Use: Yes Alcohol type: wine Alcohol Intake Frequency: 2-3 x/Week Alcohol Intake Frequency Comment: weekends he drinks Hx Substance Use: No Preferred Language: Armenian Communication Ability: Effective Visual Impairment: Limited Hearing Ability: Normal Arc Air Operator Required: No Beliefs That Will Affect Care: None marital status: Current Living Situation: Spouse current occupational status: employed current occupation: [employer] How many Children do You have: 2 Feels Safe at Home: Yes Childhood Exposure to Second-Hand Smoke: No caffeine: Yes (coffee) Dental Care, Regularly: Yes Physical Activity Frequency: 3-4 Times per Week Seatbelt Use: always Sunscreen Use: Yes Assistive Devices: Glasses Review of Systems Constitutional: as per Subjective / HPI Eyes: as per Subjective / HPI Respiratory: as per Subjective / HPI Cardiovascular: Additional Comments: HTN, hyperlipidemia Gastrointestinal: as per Subjective / HPI Genitourinary: + as per Subjective / HPI Musculoskeletal: Cervicalgia Neurologic: as per Subjective / HPI Psychiatric: as per Subjective / HPI Endocrine: Elevated fasting glucose Hematologic / Lymphatic: as per Subjective / HPI Physical Exam Constitutional: WD/WN, vitals as above Eyes: PERRL, conjunctivae normal, anicteric sclerae Neck: trachea midline, no thyromegaly Respiratory: normal respiratory effort, lungs clear to auscultation Cardiovascular: RRR, no murmur, no edema Gastrointestinal (Abdomen): soft, no sifnificant tenderness, no distend, BS + Musculoskeletal: no cyanosis or clubbing, extremities motor strength 5/5 Neurologic: patellar DTR's 2+ bilat, sensation intact Psychiatric: A+Ox3, euthymic affect Results & Data Vital Signs (Past 12 Hours) Vital Signs Temp Pulse Resp BP Pulse Ox O2 Del Method 08/13/23 08:11 36.9 C 70 18 155/82 H 95 Room Air 08/13/23 02:25 Room Air 08/13/23 02:25 36.9 C 85 16 148/78 H 97 Room Air 08/13/23 00:30 79 16 151/90 H 96 Room Air Laboratory Results Lab Results 08/12/23 08/12/23 08/13/23 Range/Units 20:05 21:38 06:51 WBC 11.45 H 9.94 (4.8-10.8) K/ul RBC 5.47 5.10 (4.70-6.10) M/uL Hgb 14.3 13.3 L (14.0-18.0) g/dl Hct 43.2 40.9 L (42.0-52.0) % MCV 79.0 L 80.2 (80.0-100.0) fL MCH 26.1 26.1 (25.0-34.0) pg MCHC 33.1 32.5 (32.0-36.0) g/dL RDW Std Deviation 38.3 39.8 (36.4-46.3) fL RDW Coeff of Bette 13.5 13.7 (11.5-14.5) % Plt Count 299 270 (130-400) K/uL MPV 8.8 L 9.2 L (9.4-12.4) fL Immature Gran % (Auto) 0.3 % Neut % (Auto) 82.5 % Lymph % (Auto) 12.5 % [place] % (Auto) 4.5 % Eos % (Auto) 0.0 % Baso % (Auto) 0.2 % Neut # (Auto) 9.46 H (1.40-6.50) K/uL Lymph # (Auto) 1.43 (1.20-3.40) K/uL [place] # (Auto) 0.51 (0.11-0.59) K/uL Eos # (Auto) 0.00 (0.00-0.50) K/uL Baso # (Auto) 0.02 (0.00-0.20) K/uL Immature Gran # (Auto) 0.03 (0.01-0.20) K/uL Sodium 138 139 (136-145) mmol/L Potassium 4.0 3.7 (3.5-5.1) mmol/L Chloride 102 107 (98-107) mmol/L Carbon Dioxide 26 25 (21-32) mmol/L Anion Gap 10 7 (3-11) BUN 15 12 (6-23) mg/dl Creatinine 0.90 0.76 (0.6-1.4) mg/dl Est Cr Clr Drug Dosing 88.3 104.4 ml/min Est GFR ( Amer) 102.1 109.4 ml/min Est GFR (Non-Af Amer) 88.1 94.4 ml/min BUN/Creatinine Ratio 16.7 15.8 (10-20) Glucose 159 H 127 H (70-99(Fasting)) mg/dl Calcium 9.1 8.4 L (8.6-10.3) mg/dl Total Bilirubin 0.7 (0.2-1.0) mg/dl AST 27 (13-39) U/L ALT 28 (7-52) U/L Alkaline Phosphatase 43 (34-104) U/L Total Protein 7.2 (6.0-8.3) gm/dl Albumin 4.4 (3.4-5.0) gm/dl Globulin 2.8 (2.5-4.0) gm/dl Albumin/Globulin Ratio 1.6 (0.9-2) Lipase 18 (11-82) U/L Urine Color Yellow Urine Appearance Clear (Clear) Urine pH 6.5 (4.5-7.5) Ur Specific [place] 1.028 (1.000-1.030) Urine Protein 1+ H (Negative) Urine Glucose (UA) Negative (Negative) Urine Ketones 3+ H (Negative) Urine Blood Negative (Negative) Urine Nitrite Negative (Negative) Urine Bilirubin Negative (Negative) Urine Urobilinogen Negative (Negative) Ur Leukocyte Esterase Negative (Negative) Urine WBC (Auto) 1-5 (0-5) /hpf Urine RBC (Auto) 0-4 (0-4) /hpf U Hyaline Cast (Auto) 1-5 (0-5) /lpf U Epithel Cells (Auto) >30 H (0-5) /lpf Urine Bacteria (Auto) Negative (Negative) Ur Renal Epithelial Cell Not Reportable Urine Mucus Present A (None Prsent) Diagnostic Findings Exam(s): CT ABDOMEN + PELVIS With Contrast IV Amt: 80ML OPTIRAY 320 EXAM: CT Abdomen and Pelvis With Intravenous Contrast CLINICAL HISTORY: Reason for exam: epigastric pain; vomiting. TECHNIQUE: Axial computed tomography images of the abdomen and pelvis with intravenous contrast. CTDI is 25.92 mGy and DLP is 1329.7 mGy-cm. Automated exposure control was utilized for the study. A dose lowering technique was utilized adhering to the principles of ALARA. CONTRAST: Patient received 80ML OPTIRAY 320 of IV contrast COMPARISON: No relevant prior studies available. FINDINGS: Lung bases: Unremarkable. No mass. No consolidation. ABDOMEN: Liver: Unremarkable. No mass. Gallbladder and bile ducts: Unremarkable. No calcified stones. No ductal dilation. Pancreas: Unremarkable. No mass. No ductal dilation. Spleen: Unremarkable. No splenomegaly. Adrenals: Unremarkable. No mass. Kidneys and ureters: Unremarkable. No solid mass. No hydronephrosis. Stomach and bowel: Mild to moderate small bowel obstruction with a transition in the midline pelvis. Trace free fluid within the dependent pelvis likely reactive in nature. No mucosal thickening. PELVIS: Appendix: No findings to suggest acute appendicitis. Bladder: Unremarkable. No mass. Reproductive: Unremarkable as visualized. ABDOMEN and PELVIS: Intraperitoneal space: No free air. Bones/joints: No acute fracture. No dislocation. Soft tissues: Unremarkable. Vasculature: Unremarkable. No abdominal aortic aneurysm. Lymph nodes: Unremarkable. No enlarged lymph nodes. IMPRESSION: Mild to moderate small bowel obstruction with transition point in the midline pelvis Electronically signed by: Sigifredo Teran MD 08/12/23 21:37 PM Dictated: 08/12/232136 Transcribed: 08/12/232136 KUB CLINICAL HISTORY: confirm NG tube placement COMPARISON STUDY: CT of the abdomen and pelvis August 12, 2023. FINDINGS: The tip of the nasogastric tube is within the body of the stomach. Dilated small bowel loops are partially imaged on this exam. IMPRESSION: 1. Tip of nasogastric tube within the body of the stomach. 2. Evidence for a small bowel obstruction, better depicted on CT of August 12, 2023. ACT 112: Negative or not required by law. Electronically signed by: Matthew Brenner M.D. 08/13/2023 7:20 AM Dictated: 08/13/23718 Transcribed: 08/13/23718
[2023-08-13] MEDS: PANTOprazole 40 MG in SYRINGE 0 ML IV SCH (12:12)
[2023-08-13] MEDS: HEPARIN SOD 5,000 UNIT/0.5 ML VIAL SQ SCH (21:08)
[2023-08-13 21:25] VITALS: O2SAT 98
[2023-08-14 07:52] VITALS: BP 148/75; PULSE 61; RESP 16; TEMP 98.2
[2023-08-14] MEDS: HEPARIN SOD 5,000 UNIT/0.5 ML VIAL SQ SCH (07:52)
--- NOTE | 2023-08-14 11:12 | XRay Report ---
KUB HISTORY: Acute generalized abdominal pain eval sbo COMPARISON: 08/13/2023 FINDINGS: Interval removal of the enteric tube. There is decreased small bowel distention from the pr ior study. Nondilated air-filled loops of large and small bowel. No renal calculi. No ureteral calcu li. No pneumoperitoneum or pneumatosis. No fracture. IMPRESSION: 1. Interval removal of the enteric tube. 2. No radiographic evidence of obstruction on today's study. ACT 112: Negative or not required by law. The above report was generated using voice recognition software. It may contain grammatical, syntax o r spelling errors. Electronically signed by: John Singer M.D. 08/14/2023 11:11 AM
[2023-08-14] MEDS: PANTOprazole 40 MG in SYRINGE 0 ML IV SCH (12:18)
--- NOTE | 2023-08-14 14:46 | Discharge Summary ---
Date of Service August 14, 2023 Admission HPI Per Admitting Provider 68yo Male with PMH peripheral neuropathy HTN HLD GERD hypothyroidism here for concern SBO. Patient states he has had symptoms on and off over the past month that would usually resolve without intervention. Today at noon he developed abd pain had 1 episode vomiting loss of appetite nausea that persisted, came to ED. Patient states in ED he was given fluids pain medication and nausea medication which helped his symptoms. Patient denies history of abdominal surgeries or injuries. Has never had SBO before. Has not had bowel movement or flatulence this morning. Patient denies any fever or SOB. Principal Diagnosis small bowel obstruction spontaneously resolved Discharge Exam awake and alert, ate lunch without issue Discharge Data Allergies Allergy/AdvReac Type Severity Reaction Status Date / Time hydrochlorothiazide Allergy Unknown Rash Verified 01/30/23 15:00 amoxicillin [From Augmentin] AdvReac Rash Unverified 01/30/23 15:00 clavulanic acid AdvReac Rash Unverified 01/30/23 15:00 [From Augmentin] Consultations 08/12/23 22:46 ED Decision to Admit Stat 08/13/23 02:21 Consult General Surgery Routine Ordered Studies 08/12/23 21:12 CT Abd and Pelvis [CT abd pelvis IV con only] Stat Hospital Course (1) SBO (small bowel obstruction): 68yo Male with PMH peripheral neuropathy HTN HLD GERD hypothyroidism SBO confirmed on CT abdomen /pelvis. -NGT accidentally removed last pm, tolerated chips and sips overnight, tolerated clear liq breakfast and lunch Pt prefers to go home and advance diet there, did have large bm according to nurses am of discharge prn zofran rx sent to pharmacy Neuropathy resume gabapentin GERD -continue protonix (2) Hypothyroidism: Hypothyroidism chronic and stable - levothyroxine, Plan Code Status: full DVT PPX: sc strt in pm Total Time Total Time Spent Total Time Spent (In Minutes): It required greater than 30 minutes to prepare this patient for discharge. Including 2 visits to see if he tolerated lunch Discharge Plan Discharge Items Patient Disposition: Home - Self-Care Reason For Visit: SBO Discharge Diagnosis: small bowel obstruction with spontaneous improvement Activity: Resume your previous activity Non-emergency contact: Primary Care Provider Call non-emergency contact if: your symptoms worsen Follow-up/Referrals: Ingrid Roberts MD [Primary Care Provider] - Diet: Other - See Diet Comment Diet Comment: clear liquids evening 08/14, full liquids(dairy) bfast lunch 08/15 Addtl Attending Provider Instructions: may advance to low fiber meals in evening of 08/15 and beyond if tolerating low fiber slowy resume normal fiber diet after about 3 days follow up with your primary care doctor in about a week Pending Studies at Discharge: No Stand-Alone Forms: My [facility] [employer], Smoking Cessation Medications and DC Order Prescriptions: New ondansetron 4 mg tablet,disintegrating 4 mg PO Q8H PRN (Reason: nausea and vomiting) 4 Days Qty: 10 0RF Continued levothyroxine 25 mcg tablet 25 mcg PO DAILY Qty: 90 2RF gabapentin 300 mg capsule See Rx Instructions .ROUTE .COMPLEX Qty: 30 5RF Dose Instruction: TAKE 1 CAPSULE BY MOUTH AT BEDTIME NEEDED FOR NEUROPATHY Rx Instructions: TAKE 1 CAPSULE BY MOUTH AT BEDTIME NEEDED FOR NEUROPATHY omeprazole 40 mg capsule,delayed release(DR/EC) 40 mg PO DAILY Qty: 90 3RF famotidine 10 mg tablet 10 mg PO BID Held rosuvastatin 5 mg tablet See Rx Instructions .ROUTE .COMPLEX Qty: 90 3RF Hold Instructions: Resume on 08/21/23. Dose Instruction: TAKE 1 TABLET BY MOUTH EVERY DAY Rx Instructions: TAKE 1 TABLET BY MOUTH EVERY DAY Discharge Orders: Discharge Order (Routine); Ordered 08/14/23 Ordered By: Yogesh Stevens Admission Data Admit Date/Time: 08/12/23 23:28 Attending Provider: Yogesh Stevens Admit Provider: Amina Cristobal Primary Care Provider: Ingrid Roberts Other Providers: Kayla Rodríguez; Jovanni Rodriguez Coding Level of Care Code 81728 INP/OBS DISCH >30 MIN Diagnoses SBO (small bowel obstruction) K56.609 Hypothyroidism E03.9
== END 2023-08-14 15:53 | disposition home or self-care (01) | DRG 390 ==
LOC: ED 19:42 → 3W 23:28 → SUATTDRO 23:28 → 3W 08-13 01:58
DX: Z88.8 Allergy status to other drugs, medicaments and biological substances; K21.9 Gastro-esophageal reflux disease without esophagitis; Z88.1 Allergy status to other antibiotic agents; Z79.899 Other long term (current) drug therapy; Z79.890 Hormone replacement therapy; I10 Essential (primary) hypertension; E03.9 Hypothyroidism, unspecified; Z88.0 Allergy status to penicillin; E78.5 Hyperlipidemia, unspecified; K56.609 Unspecified intestinal obstruction, unspecified as to partial versus complete obstruction; G62.9 Polyneuropathy, unspecified

== ENCOUNTER 2024-04-20 09:48 | Inpatient (IN) ==
--- NOTE | 2024-04-20 10:34 | Emergency Department Note ---
History of Present Illness General Chief complaint: GI Assessment Stated complaint: GASTRITIS Time Seen by Provider: 04/20/24 10:13 History of Present Illness Patient is a 69-year-old male with past medical history significant for hypertension, dyslipidemia, hypothyroidism, neuropathy, prediabetes, among other chronic medical problems who presents to the emergency department for evaluation of abdominal pain and bloating x 3 days. Patient reports that he has diagnosed with gastritis clinically in the past. He states when he gets a flare of symptoms he put himself on Prilosec. He states the Prilosec about 3 to 4 weeks ago. On Saturday, patient and his were out to dinner. He had wine, crab cakes, later had some almonds and a caramel chocolate. Later in the evening, he began to notice some increased upper abdominal discomfort and bloating. He describes it as a cramping sensation that comes and goes. He initially attributed it to the food that he had eaten. He states that his symptoms continued through the weekend and the pain has gotten worse. He reports some mild nausea and anorexia, but no vomiting. He had a normal bowel movement on Saturday, but the bowel movements subsequently have been smaller. No blood in his stool. He increased the Prilosec to twice a day and started taking Pepcid twice a day, with some mild improvement. Patient had a small bowel obstruction in the past, states this does not feel similar. There is no history of any abdominal surgeries. He does have a history of diverticulosis. He denies any urinary symptoms. He was seen at the [facility] yesterday, who recommended supportive care. Patient became concerned because the pain was getting worse, thus presenting here in the ED today. Home Medications Medication Instructions Recorded Confirmed Type levothyroxine 25 mcg tablet 25 mcg PO DAILY #90 tabs 10/24/23 04/20/24 Rx rosuvastatin 5 mg tablet 5 mg PO DAILY #90 tabs 02/18/24 04/20/24 Rx olmesartan 20 mg tablet 10 mg (1/2 x 20 mg) PO DAILY #30 04/19/24 04/20/24 Rx tabs gabapentin 300 mg capsule 300 mg PO HS PRN neuropathy 04/20/24 04/20/24 History Allergies Allergy/AdvReac Type Severity Reaction Status Date / Time hydrochlorothiazide Allergy Unknown Rash Verified 04/19/24 16:09 amoxicillin [From Augmentin] AdvReac Rash Unverified 04/19/24 16:09 clavulanic acid AdvReac Rash Unverified 04/19/24 16:09 [From Augmentin] Past Med/Surg History Problem List Enteritis Small bowel obstruction (Acute) Medical History Hypercholesteremia Prediabetes History of malignant melanoma Colon polyps Post-Lyme disease syndrome Idiopathic polyneuropathy Hypothyroidism Cervicalgia High frequency hearing loss of both ears Hyperlipidemia HTN (hypertension) Rosacea Tinnitus Arthralgia of multiple sites Hyperglycemia Back pain Surgical History S/P Mohs surgery for basal cell carcinoma History of arthroscopic knee surgery Family History Father Coronary heart disease Dyslipidemia FERN (obstructive sleep apnea) Myocardial infarction Brother Hypertension Mother Hay fever Sister Hypertension Other No pertinent family history Denies family history of Ovarian cancer Prostate cancer Breast cancer Colorectal cancer Social History Smoking Status: Never smoker Second Hand Exposure: No; Do You Dip or Chew Tobacco: No; Tobacco Cessation Education Requested by Patient: No Hx Alcohol Use: Yes Alcohol type: wine and hard liquor Alcohol Intake Frequency: 2-3 x/Week Alcohol Intake Frequency Comment: weekends he drinks Hx Substance Use: No Preferred Language: German Communication Ability: Effective Visual Impairment: Limited Hearing Ability: Normal 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 Beliefs That Will Affect Care: None marital status: Current Living Situation: Spouse Current Living Situation Comment: lives at home with current occupational status: employed current occupation: [employer] How many Children do You have: 2 Other Information That Helps Us Care for You: No Feels Safe at Home: Yes Safety Concerns: Feels Safe At This Time Childhood Exposure to Second-Hand Smoke: No caffeine: Yes (coffee) Dental Care, Regularly: Yes Physical Activity Frequency: 3-4 Times per Week Seatbelt Use: always Sunscreen Use: Yes Assistive Devices: Glasses Review of Systems A total of 10 systems reviewed and were otherwise negative Physical Exam Vital Signs Vital Signs - 24 hr 04/20/24 09:51 04/20/24 10:38 04/20/24 12:35 Temperature 36.4 C L Temperature Source Temporal Artery Scan Pulse Rate 82 Pulse Rate [Right Finger] 85 Respiratory Rate 16 20 Respiratory Effort / Characteristics Non-Labored Spontaneous Respiratory Depth Normal Respiratory Pattern Regular Blood Pressure 127/79 Blood Pressure [Right Arm] 128/72 Blood Pressure Mean 95 Blood Pressure Mean [Right Arm] 90 Pulse Oximetry 95 98 95 Oxygen Delivery Method Room Air Room Air Room Air Sepsis Recent Fever Within 48 Hours No Sepsis New/Unexplained Change in Mental Status N/A Sepsis Action Taken by Nursing No Action Required CONSTITUTIONAL: Pleasant, well-appearing 69-year-old male sitting semiupright on the gurney in no acute distress. EYES: Pupils equal, round, reactive to light and accommodation. EOMs intact without nystagmus. Sclera are anicteric. ENT: Oral and nasopharynx are clear. Mucous membranes are moist, no lesions, tongue and gums appear normal. CARDIOVASCULAR: Regular rate and rhythm. Peripheral pulses easy to palpable. RESPIRATORY: Breath sounds equal and clear to auscultation. GI: Bowel sounds are present, but hypoactive. The abdomen is soft, mildly distended, tympanic to percussion throughout. He is tender to palpation in the left mid and left lower quadrant, in the periumbilical area, no guarding or rebound. No pain in the epigastric region or in the right upper quadrant. Negative Ta sign. No CVA tenderness. MUSCULOSKELETAL: Full range of motion of extremities x 4 with good strength. No cyanosis, edema, joint tenderness or swelling. No deformity. INTEGUMENTARY: No lesions or rash, normal skin turgor. Course Course The patient was seen and assessed as above. External medical records were reviewed, including PCP notes and urgent care visit from yesterday. He presents to the emergency department for evaluation of several days of abdominal pain/bloating and anorexia. IV lock was initiated. Laboratory studies were collected including CBC with differential, CMP, lipase and urinalysis. He was hydrated with normal saline solution and treated with IV Pepcid and IM Bentyl. CT scan of the abdomen and pelvis with IV contrast was ordered. Diagnostics, as interpreted by me: Laboratory studies: Normal white count at 7600, no left shift. No anemia. No electrolyte imbalance or SHASHI. No transaminitis. Lipase is not indicative of acute pancreatitis. Urine microscopy is without signs of infection. Cardiac Monitoring: An order was placed for continuous cardiac monitoring. The monitor shows a NSR at a rate of 85 per my interpretation. Imaging studies: CT scan of the abdomen pelvis with IV contrast is concerning for a small bowel obstruction. Superimposed enteritis also considered. Radiologist questions whether a closed-loop type obstruction is present. Recommended surgical consultation. Case was discussed with attending physician, Dr. Ross. Patient was reassessed. Laboratory studies and CT scan findings were reviewed with him. Consultation was placed with general surgery. Patient reviewed with Dr. Ward, who recommended conservative care at this time, admission to medicine. [facility] and admitted for further care. Patient was discussed with Vinay Rendon PA-C. Please refer to admission H&P and orders for further information. Differential diagnosis: GERD, gastritis, esophagitis, peptic ulcer disease, pancreatitis, biliary colic, acute cholecystitis, choledocholithiasis, bowel obstruction, perforation, abscess, mass or malignancy, diverticulitis, among others. Administered Medications Lactated Ringer's (Lr) 1,000 mls @ 100 mls/hr IV .Q10H LAUREN Stop: 04/21/24 09:14 Last Admin: 04/20/24 14:39 Dose: 100 mls/hr Documented By: VLR Discontinued Medications Dicyclomine HCl (Dicyclomine Hcl 10 Mg/Ml 2 Ml Amp/Vial) 20 mg IM NOW ONE Stop: 04/20/24 10:29 Last Admin: 04/20/24 10:35 Dose: 20 mg Documented By: MES Sodium Chloride (Nss) 1,000 mls @ 999 mls/hr IV .Q1H1M LAUREN Stop: 04/20/24 11:29 Last Infusion: 04/20/24 12:37 Dose: Infused Documented By: Admin: 04/20/24 10:35 Dose: 999 mls/hr Documented By: MES Famotidine (Pepcid 20mg Iv Push) 20 mg in 5 mls @ 2.5 mls/min IV NOW STA Stop: 04/20/24 10:29 Last Admin: 04/20/24 10:35 Dose: 2.5 mls/min Documented By: MES Pantoprazole Sodium 40 mg/ (Syringe) 10 mls @ 5 mls/min IV NOW ONE Stop: 04/20/24 13:46 Last Admin: 04/20/24 15:08 Dose: 5 mls/min Documented By: ADRIANNE Ioversol (Optiray 320 100ml) 94 ml IV ONCE ONE Stop: 04/20/24 12:03 Last Admin: 04/20/24 12:03 Dose: 94 ml Documented By: ANNAMARIE Medical Decision Making Differential Diagnosis See ED course. Medical Records Attestation: I reviewed the patient's medical records. Home Medications Current Medication List: was personally reviewed by me Laboratory Data Attestation: I reviewed the patient's lab results. 04/20/24 10:40 04/20/24 10:40 Lab Results 04/20/24 04/20/24 Range/Units 10:40 12:40 WBC 7.69 (4.8-10.8) K/ul RBC 5.10 (4.70-6.10) M/uL Hgb 13.8 L (14.0-18.0) g/dl Hct 42.6 (42.0-52.0) % MCV 83.5 (80.0-100.0) fL MCH 27.1 (25.0-34.0) pg MCHC 32.4 (32.0-36.0) g/dL RDW Std Deviation 45.1 (36.4-46.3) fL RDW Coeff of Bette 14.9 H (11.5-14.5) % Plt Count 250 (130-400) K/uL MPV 9.1 L (9.4-12.4) fL Immature Gran % (Auto) 0.3 % Neut % (Auto) 65.8 % Lymph % (Auto) 17.2 % [place] % (Auto) 16.1 % Eos % (Auto) 0.3 % Baso % (Auto) 0.3 % Neut # (Auto) 5.07 (1.40-6.50) K/uL Lymph # (Auto) 1.32 (1.20-3.40) K/uL [place] # (Auto) 1.24 H (0.11-0.59) K/uL Eos # (Auto) 0.02 (0.00-0.50) K/uL Baso # (Auto) 0.02 (0.00-0.20) K/uL Immature Gran # (Auto) 0.02 (0.01-0.20) K/uL Sodium 137 (136-145) mmol/L Potassium 4.0 (3.5-5.1) mmol/L Chloride 102 (98-107) mmol/L Carbon Dioxide 29 (21-32) mmol/L Anion Gap 6 (3-11) BUN 15 (6-23) mg/dl Creatinine 0.90 (0.6-1.4) mg/dl Est Cr Clr Drug Dosing 81.1 ml/min Est GFR ( Amer) 101.4 ml/min Est GFR (Non-Af Amer) 87.5 ml/min BUN/Creatinine Ratio 16.7 (10-20) Glucose 124 H (70-99(Fasting)) mg/dl Calcium 8.7 (8.6-10.3) mg/dl Total Bilirubin 0.8 (0.2-1.0) mg/dl AST 19 (13-39) U/L ALT 17 (7-52) U/L Alkaline Phosphatase 34 (34-104) U/L Total Protein 6.6 (6.0-8.3) gm/dl Albumin 4.1 (3.4-5.0) gm/dl Globulin 2.5 (2.5-4.0) gm/dl Albumin/Globulin Ratio 1.6 (0.9-2) Lipase 16 (11-82) U/L Procalcitonin < 0.02 (0-0.5) ng/ml Urine Color Yellow Urine Appearance Clear (Clear) Urine pH 6.5 (4.5-7.5) Ur Specific Andrews 1.010 (1.000-1.030) Urine Protein Negative (Negative) Urine Glucose (UA) Negative (Negative) Urine Ketones 1+ H (Negative) Urine Blood Negative (Negative) Urine Nitrite Negative (Negative) Urine Bilirubin Negative (Negative) Urine Urobilinogen Negative (Negative) Ur Leukocyte Esterase Negative (Negative) Imaging Data Attestation: I personally reviewed and interpreted this imaging study as follows: Radiologist's Impression: Abdomen/Pelvis CT 04/20/24 10:[address] WITH IV CONTRAST CT DOSE: 1299.28 mGy.cm HISTORY: MID ABD PAIN, BLOATING X 3 DAYS TECHNIQUE: Multiaxial CT images of the abdomen and pelvis were performed following the use of intravenous contrast. A dose lowering technique was utilized adhering to the principles of ALARA. COMPARISON STUDY: Abdomen and pelvis CT 08/12/2023. FINDINGS: The lung bases are clear. No pneumoperitoneum. No pneumatosis. No acute fractures. The liver, gallbladder, pancreas, spleen, adrenal glands, and kidneys are within normal limits. There are few small left peripelvic renal cysts noted. No hydronephrosis. The main portal vein is patent. Mild calcified plaque within the normal caliber abdominal aorta. No retroperitoneal or pelvic lymphadenopathy. Normal bladder. Trace pelvic free fluid. There is central mesenteric lymphadenopathy which is similar to the prior study. Dominant mesenteric lymph node on image 241 measures 2.7 x 1.7 cm although indeterminate this may be reactive. The majority of the colon is decompressed. Normal appendix. Multiple thickened and dilated loops of small bowel within the mid to lower abdomen with a focal transition point within the mid pelvis at a mid ileal loops on image 280. This is similar to the prior study. There is mesenteric fat stranding surrounding the thickened and dilated loops of small bowel. The small bowel is dilated up to 4.7 cm. There is a possible proximal transition point within the left mid abdomen on image 190. No mesenteric venous gas identified. IMPRESSION: 1. Multiple dilated and thickened loops of small bowel within the mid to lower abdomen with a focal tight transition point within the mid pelvis as described above. This is similar to the prior study and is consistent with a small bowel obstruction. The thickened loops of small bowel raise the possibility of a nonspecific enteritis. Underlying small bowel ischemia is considered less likely but not entirely excluded. No pneumatosis identified. 2. There is a questionable proximal transition point within the distended loops of small bowel at the left side of the abdomen. Therefore, a closed loop type obstruction remains in the differential diagnosis but is considered less likely. Surgical consultation recommended. 3. Central mesenteric lymphadenopathy, unchanged. 4. Additional findings as described above. ACT 112: Negative or not required by law. Electronically signed by: Preet Llamas M.D. 04/20/2024 12:21 PM MDM Narrative See ED course. Impression & Plan Small bowel obstruction Discharge Plan Visit Data Chief Complaint: GI Assessment Stated Complaint: GASTRITIS ED Provider: Herb Ross ED Midlevel Provider: Madelyn Garcia Discharge Problem: Small bowel obstruction Patient Disposition: Admitted As Inpatient Discharge Instructions Interventions: ED Discharge Assessment Last Done: 04/20/24 13:37
[2024-04-20] MEDS: SODIUM CHLORIDE 0.9% 1,000 ML IV SCH (10:35)
[2024-04-20] MEDS: DICYCLOMINE HCL 10 MG/ML 2 ML AMP/VIAL IM ONE (10:35)
[2024-04-20] MEDS: FAMOTIDINE 20MG IV PUSH 20 MG/5 ML SYR IV STA (10:35)
[2024-04-20 11:22] LABS: Basophils # (auto) 0.02 K/uL (0.00-0.20); Basophils % (auto) 0.3 %; Eosinophils # (auto) 0.02 K/uL (0.00-0.50); Eosinophils % (auto) 0.3 %; Hematocrit (blood only) 42.6 % (42.0-52.0); Hemoglobin 13.8 g/dl (14.0-18.0); Immature Granulocytes # (auto) 0.02 K/uL (0.01-0.20); Immature Granulocytes % (auto) 0.3 %; Lymphocytes # (auto) 1.32 K/uL (1.20-3.40); Lymphocytes % (auto) 17.2 %; Mean Corpuscular Hemoglobin 27.1 pg (25.0-34.0); Mean Corpuscular Hgb Conc 32.4 g/dL (32.0-36.0); Mean Corpuscular Volume 83.5 fL (80.0-100.0); Mean Platelet Volume 9.1 fL (9.4-12.4); Monocytes # (auto) 1.24 K/uL (0.11-0.59); Monocytes % (auto) 16.1 %; Neutrophils # (auto) 5.07 K/uL (1.40-6.50); Neutrophils % (auto) 65.8 %; Platelet Count 250 K/uL (130-400); RDW Coefficient of Variation 14.9 % (11.5-14.5); RDW Standard Deviation 45.1 fL (36.4-46.3); White Blood Count 7.69 K/ul (4.8-10.8)
[2024-04-20 11:39] LABS: Albumin Globulin Ratio 1.6 (0.9-2); Albumin Level 4.1 gm/dl (3.4-5.0); BUN Creatinine Ratio 16.7 (10-20); Bilirubin,Total 0.8 mg/dl (0.2-1.0); Calcium 8.7 mg/dl (8.6-10.3); Creatinine Clr Calc Pharmacy 81.1 ml/min; Est GFR (African American) 101.4 ml/min; Est GFR (Non-African American) 87.5 ml/min; Globulin 2.5 gm/dl (2.5-4.0); Total Protein 6.6 gm/dl (6.0-8.3)
[2024-04-20] MEDS: OPTIRAY 320 100ml IV ONE (12:03)
--- NOTE | 2024-04-20 12:22 | CT Scan Report ---
ABDOMEN AND PELVIS CT WITH IV CONTRAST CT DOSE: 1299.28 mGy.cm HISTORY: MID ABD PAIN, BLOATING X 3 DAYS TECHNIQUE: Multiaxial CT images of the abdomen and pelvis were performed following the use of intrave nous contrast. A dose lowering technique was utilized adhering to the principles of ALARA. COMPARISON STUDY: Abdomen and pelvis CT 08/12/2023. FINDINGS: The lung bases are clear. No pneumoperitoneum. No pneumatosis. No acute fractures. The live r, gallbladder, pancreas, spleen, adrenal glands, and kidneys are within normal limits. There are few small left peripelvic renal cysts noted. No hydronephrosis. The main portal vein is patent. Mild xi cified plaque within the normal caliber abdominal aorta. No retroperitoneal or pelvic lymphadenopathy . Normal bladder. Trace pelvic free fluid. There is central mesenteric lymphadenopathy which is simil ar to the prior study. Dominant mesenteric lymph node on image 241 measures 2.7 x 1.7 cm although ind eterminate this may be reactive. The majority of the colon is decompressed. Normal appendix. Multiple thickened and dilated loops of small bowel within the mid to lower abdomen with a focal transition p oint within the mid pelvis at a mid ileal loops on image 280. This is similar to the prior study. The re is mesenteric fat stranding surrounding the thickened and dilated loops of small bowel. The small bowel is dilated up to 4.7 cm. There is a possible proximal transition point within the left mid abdo men on image 190. No mesenteric venous gas identified. IMPRESSION: 1. Multiple dilated and thickened loops of small bowel within the mid to lower abdomen with a focal t ight transition point within the mid pelvis as described above. This is similar to the prior study a nd is consistent with a small bowel obstruction. The thickened loops of small bowel raise the possibi lity of a nonspecific enteritis. Underlying small bowel ischemia is considered less likely but not en tirely excluded. No pneumatosis identified. 2. There is a questionable proximal transition point within the distended loops of small bowel at the left side of the abdomen. Therefore, a closed loop type obstruction remains in the differential diag nosis but is considered less likely. Surgical consultation recommended. 3. Central mesenteric lymphadenopathy, unchanged. 4. Additional findings as described above. ACT 112: Negative or not required by law. Electronically signed by: Preet Llamas M.D. 04/20/2024 12:21 PM
[2024-04-20 12:52] LABS: Appearance Urine Clear (Clear); Bilirubin Urine Negative (Negative); Blood Urine Negative (Negative); Color Urine Yellow; Glucose Urine UA Negative (Negative); Ketones Urine 1+ (Negative); Leukocyte Esterase Urine Negative (Negative); Nitrite Urine Negative (Negative); Protein Urine Negative (Negative); Urobilinogen Urine Negative (Negative); pH Urine 6.5 (4.5-7.5)
--- NOTE | 2024-04-20 13:11 | History & Physical Report ---
Date of Service April 20, 2024 Assessment & Plan (1) Small bowel obstruction: Plan: Admit to med telemetry Currently stable nontoxic-appearing Present to the ED with progressive upper abdominal pain/cramping with poor oral intake since 04/18/2024 No recent episodes of nausea/vomiting, passing gas as of this a.m. CT abdomen pelvis with IV contrast notes signs consistent previous small bowel obstruction, cannot rule out additional enteritis at this time ED staff did speak with general surgery who reviewed imaging and recommended medicine admission at this time, no emergent plans for OR, they will continue to follow General Surgery consult has been placed Unclear otology of recurrent small bowel obstruction as patient does not have a previous history abdominal procedures, would recommend continuing to monitor central lymphadenopathy which has been stable since previous CT of the abdomen pelvis Do not need to place NG tube at this time as patient is currently comfortable has been without nausea/vomiting since arrival Will add on lactate and Pro-Jose on admission Status post 1 L emesis in the ED, will continue with maintenance LR while n.p.o. Strict n.p.o. until recommended otherwise by general surgery Pain control with Tylenol and morphine Bilateral SCDs for DVT prophylaxis AM CBC, CMP, mag, PT/INR (2) Enteritis: Plan: Patient noted to have thickened loops of small bowel raising the possibility of nonspecific enteritis, underlying small bowel ischemia is considered less likely but not entirely excluded Denies recent fever, chills, diarrhea WBC is within normal limits, will hold antibiotics at this time Will add on lactate and procalcitonin levels at the time of admission Continue IV fluids and will start daily IV pantoprazole for now General Surgery has been consulted (3) Hypercholesteremia: Plan: Resume statin when able (4) Hypothyroidism: Plan: Resume levothyroxine when able Plan The patient was discussed with Dr. Arreguin at the time of the admission History of Present Illness Chief Complaint: Abdominal pain, poor oral intake Primary Care Provider: Ingrid Roberts MD Fredy is a 69-year-old male with past medical history significant for peripheral neuropathy HTN, HLD, GERD, hypothyroidism, and previous small bowel obstruction who presented to the [facility] ED on 04/20/2024 due to recurrent abdominal pain and poor oral intake. He remained stable in the ED. Labs including CBC, CMP, and lipase were unremarkable. UA shows 1+ ketones but is otherwise unremarkable. CT of the abdomen pelvis with IV contrast was read as multiple dilated and thickened loops of small bowel within the mid to lower abdomen with a focal tight transition point was in the mid pelvis as described above. This is similar to the prior study and is consistent with a small bowel obstruction. The thickened loops of small bowel raise the possibility of a nonspecific enteritis. Small bowel ischemia is considered less likely but not entirely excluded. No pneumatosis identified. There is a questionable proximal transition point within the distended loops of a small bowel at the left side of the abdomen. Therefore a closed-loop type obstruction remains in the differential diagnosis but is considered less likely. Surgical consultation recommended. Central mesenteric lymphadenopathy, unchanged. Prior to admission the patient was given 20 mg IM dicyclomine, 20 mg IV famotidine, and 1 L normal saline. Patient was sitting in bed in no acute distress at time of exam with his bedside, history is obtained from both. Patient started developing bilateral upper abdominal pain/cramping on 04/18/2024. Since then has had a decreased appetite but denies nausea/vomiting, diarrhea. Pain will be intermittent in the upper abdomen with a 8/10 at its worst. Pain does not radiate other than the upper abdomen. No recent fever or chills, chest pain, shortness of breath, palpitations, hematemesis, dysuria, hematuria, melena, lower extremity swelling, recent trauma. Patient was still passing gas as of this morning and confirms that discomfort today is significantly improved compared to his admission in July 2023 for his first small bowel obstruction. They confirm that he does not have a history of previous abdominal surgeries, his is concerned for the unknown cause of the small bowel obstruction. He explains that he took all of his a.m. medications today prior to arrival except for his olmesartan as he has been weaning off this due to recurrent low blood pressures. He is a full code and want his to make medical decisions for him if cannot make himself. Please refer to Dr. Arreguin's attestation for any changes to the treatment plan Allergies Allergy/AdvReac Type Severity Reaction Status Date / Time hydrochlorothiazide Allergy Unknown Rash Verified 04/19/24 16:09 amoxicillin [From Augmentin] AdvReac Rash Unverified 04/19/24 16:09 clavulanic acid AdvReac Rash Unverified 04/19/24 16:09 [From Augmentin] Home Medications Medication Instructions Recorded Confirmed Type levothyroxine 25 mcg tablet 25 mcg PO DAILY #90 tabs 10/24/23 04/20/24 Rx rosuvastatin 5 mg tablet 5 mg PO DAILY #90 tabs 02/18/24 04/20/24 Rx olmesartan 20 mg tablet 10 mg (1/2 x 20 mg) PO DAILY #30 04/19/24 04/20/24 Rx tabs gabapentin 300 mg capsule 300 mg PO HS PRN neuropathy 04/20/24 04/20/24 History Past Med/Surg History Problem List Enteritis Small bowel obstruction (Acute) Medical History Hypercholesteremia Prediabetes History of malignant melanoma Colon polyps Post-Lyme disease syndrome Idiopathic polyneuropathy Hypothyroidism Cervicalgia High frequency hearing loss of both ears Hyperlipidemia HTN (hypertension) Rosacea Tinnitus Arthralgia of multiple sites Hyperglycemia Back pain Surgical History S/P Mohs surgery for basal cell carcinoma History of arthroscopic knee surgery Family History Father Coronary heart disease Dyslipidemia FERN (obstructive sleep apnea) Myocardial infarction Brother Hypertension Mother Hay fever Sister Hypertension Other No pertinent family history Denies family history of Ovarian cancer Prostate cancer Breast cancer Colorectal cancer Social History Smoking Status: Never smoker Second Hand Exposure: No; Do You Dip or Chew Tobacco: No; Tobacco Cessation Education Requested by Patient: No Hx Alcohol Use: Yes Alcohol type: wine and hard liquor Alcohol Intake Frequency: 2-3 x/Week Alcohol Intake Frequency Comment: weekends he drinks Hx Substance Use: No Preferred Language: Japanese Communication Ability: Effective Visual Impairment: Limited Hearing Ability: Normal 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 Beliefs That Will Affect Care: None marital status: Current Living Situation: Spouse Current Living Situation Comment: lives at home with current occupational status: employed current occupation: [employer] How many Children do You have: 2 Other Information That Helps Us Care for You: No Feels Safe at Home: Yes Safety Concerns: Feels Safe At This Time Childhood Exposure to Second-Hand Smoke: No caffeine: Yes (coffee) Dental Care, Regularly: Yes Physical Activity Frequency: 3-4 Times per Week Seatbelt Use: always Sunscreen Use: Yes Assistive Devices: Glasses Physical Exam Physical Exam: Physical Exam: General: In no acute distress, stated age, well-nourished, good hygiene HEENT: Normocephalic, atraumatic, no scleral icterus, pupils around round, symmetrical, and reactive to light, moist mucus membranes, trachea midline, no thyromegaly Chest/Pulm: No respiratory distress, symmetrical chest expansion, clear breath sounds throughout Cardiac: RRR, no murmurs noted Abdomen: Negative for ascites and bruising, hypoactive bowel sounds, soft, nontender to percussion throughout, mildly tender to palpation in the bilateral upper abdominal dee without rebound tenderness, otherwise none tender on palpation Musculoskeletal: Symmetrical and without signs of acute trauma, upper and lower extremities with full ROM, no atrophy, spasticity, or flaccidity Extremities: Radial, dorsalis pedis, and posterior tibial pulses are intact and symmetrical, no edema noted in the BL LE's Skin: Warm, dry, no rashes , lesions, or scars noted Neuro: Alert and oriented to person, place, month, year, and president, no focal defects, no tremors noted Psych: No acute distress, calm and cooperative during the exam Results & Data Results & Data Vital Signs (Past 12 Hours) Vital Signs Temp Pulse Pulse Resp BP BP Pulse Ox 04/20/24 12:35 85 20 128/72 95 04/20/24 10:38 98 04/20/24 09:51 36.4 C L 82 16 127/79 95 O2 Del Method 04/20/24 12:35 Room Air 04/20/24 10:38 Room Air 04/20/24 09:51 Room Air Laboratory Results Abnormal lab results 04/20/24 04/20/24 Range/Units 10:40 12:40 Hgb 13.8 L (14.0-18.0) g/dl RDW Coeff of Bette 14.9 H (11.5-14.5) % MPV 9.1 L (9.4-12.4) fL [place] # (Auto) 1.24 H (0.11-0.59) K/uL Glucose 124 H (70-99(Fasting)) mg/dl Urine Ketones 1+ H (Negative) Diagnostic Findings Abdomen/Pelvis CT 04/20/24 10:[address] WITH IV CONTRAST CT DOSE: 1299.28 mGy.cm HISTORY: MID ABD PAIN, BLOATING X 3 DAYS TECHNIQUE: Multiaxial CT images of the abdomen and pelvis were performed following the use of intravenous contrast. A dose lowering technique was utilized adhering to the principles of ALARA. COMPARISON STUDY: Abdomen and pelvis CT 08/12/2023. FINDINGS: The lung bases are clear. No pneumoperitoneum. No pneumatosis. No acute fractures. The liver, gallbladder, pancreas, spleen, adrenal glands, and kidneys are within normal limits. There are few small left peripelvic renal cysts noted. No hydronephrosis. The main portal vein is patent. Mild calcified plaque within the normal caliber abdominal aorta. No retroperitoneal or pelvic lymphadenopathy. Normal bladder. Trace pelvic free fluid. There is central mesenteric lymphadenopathy which is similar to the prior study. Dominant mesenteric lymph node on image 241 measures 2.7 x 1.7 cm although indeterminate this may be reactive. The majority of the colon is decompressed. Normal appendix. Multiple thickened and dilated loops of small bowel within the mid to lower abdomen with a focal transition point within the mid pelvis at a mid ileal loops on image 280. This is similar to the prior study. There is mesenteric fat stranding surrounding the thickened and dilated loops of small bowel. The small bowel is dilated up to 4.7 cm. There is a possible proximal transition point within the left mid abdomen on image 190. No mesenteric venous gas identified. IMPRESSION: 1. Multiple dilated and thickened loops of small bowel within the mid to lower abdomen with a focal tight transition point within the mid pelvis as described above. This is similar to the prior study and is consistent with a small bowel obstruction. The thickened loops of small bowel raise the possibility of a nonspecific enteritis. Underlying small bowel ischemia is considered less likely but not entirely excluded. No pneumatosis identified. 2. There is a questionable proximal transition point within the distended loops of small bowel at the left side of the abdomen. Therefore, a closed loop type obstruction remains in the differential diagnosis but is considered less likely. Surgical consultation recommended. 3. Central mesenteric lymphadenopathy, unchanged. 4. Additional findings as described above. ACT 112: Negative or not required by law. Electronically signed by: Preet Llamas M.D. 04/20/2024 12:21 PM Code Status & VTE Plan Code Status Full code VTE Prophylaxis Plan VTE Prophylaxis will be ordered: Yes Supervising Physician Co-Signing Physician Notes Patient seen and examined, chart reviewed, case discussed with Vinay Rendon PA-C and I agree with the assessment and plan as above except as otherwise noted Labs and images reviewed 69-year-old male who presents with abdominal discomfort, CT consistent with bowel obstruction. No nausea/vomiting, NGT deferred. DDx does include enteritis. Patient has had flatus by time of hospitalist assessment, symptoms appear to be improving. Will follow medically. Surgery following, Appreciate recommendations. Abdomen is softly distended without rebound/guarding/tenderness on exam. Agree with above. PG Care Time/CCT Total # of Minutes Spent Total Time Spent with Patient: Total time spent is greater than 50% in coordination of care (as documented) at patient's floor/unit and/or counseling patient: [place] [address] INT INP/OBS CARE 2/55MIN Patient Type Established Medical Decision Making Moderate Complexity Diagnoses Small bowel obstruction K56.609 Enteritis K52.9 Hypercholesteremia E78.00 Hypothyroidism E03.9
--- NOTE | 2024-04-20 14:19 | Surgery Consultation ---
Date of Consultation April 20, 2024 Assessment & Plan (1) Small bowel obstruction: (2) Enteritis: Plan 69-year-old gentleman presents with small bowel obstruction appears to be resolving. He is passing flatus and has had 2 small bowel movements. His pain is improving. He is admitted to the hospitalist service. Will keep him n.p.o. for now on IV fluids. He does not require an NG tube at this time as he is not nauseated or vomiting. We will possibly proceed with small bowel follow-through tomorrow morning. Will continue to follow while he is in the hospital. History of Present Illness Reason for Consultation: SBO Requesting Physician: Alex Arreguin MD Attending Physician: Alex Arreguin MD History of Present Illness 69-year-old gentleman presents with a 2-day history of nausea and abdominal pain. Of note he was in the hospital in July 2023 with a small bowel obstruction that resolved conservatively. He has never had an abdominal surgery in the past. He denies any trauma to his abdomen. He states that he was having significant pain in his abdomen but approximately 4 AM this morning he began passing flatus and having bowel movements. He has had 2 small bowel movements since that time. He continues to pass flatus. He does still have some abdominal discomfort but no nausea at this time. He denies fevers or chills. Allergies Allergy/AdvReac Type Severity Reaction Status Date / Time hydrochlorothiazide Allergy Unknown Rash Verified 04/19/24 16:09 amoxicillin [From Augmentin] AdvReac Rash Unverified 04/19/24 16:09 clavulanic acid AdvReac Rash Unverified 04/19/24 16:09 [From Augmentin] Home Medications Medication Instructions Recorded Confirmed Type levothyroxine 25 mcg tablet 25 mcg PO DAILY #90 tabs 10/24/23 04/20/24 Rx rosuvastatin 5 mg tablet 5 mg PO DAILY #90 tabs 02/18/24 04/20/24 Rx olmesartan 20 mg tablet 10 mg (1/2 x 20 mg) PO DAILY #30 04/19/24 04/20/24 Rx tabs gabapentin 300 mg capsule 300 mg PO HS PRN neuropathy 04/20/24 04/20/24 History Patient History Medical History Arthralgia of multiple sites Hyperglycemia Back pain Surgical History S/P Mohs surgery for basal cell carcinoma History of arthroscopic knee surgery Family History Father Coronary heart disease Dyslipidemia FERN (obstructive sleep apnea) Myocardial infarction Brother Hypertension Mother Hay fever Sister Hypertension Other No pertinent family history Denies family history of Ovarian cancer Prostate cancer Breast cancer Colorectal cancer Social History Smoking Status: Never smoker Second Hand Exposure: No; Do You Dip or Chew Tobacco: No; Hx Alcohol Use: Yes Alcohol type: wine Alcohol Intake Frequency: 2-3 x/Week Alcohol Intake Frequency Comment: weekends he drinks Hx Substance Use: No Preferred Language: Nepalese Communication Ability: Effective Visual Impairment: Limited Hearing Ability: Normal Special Education Associate Required: No Beliefs That Will Affect Care: None marital status: Current Living Situation: Spouse current occupational status: employed current occupation: [employer] How many Children do You have: 2 Feels Safe at Home: Yes Childhood Exposure to Second-Hand Smoke: No caffeine: Yes (coffee) Dental Care, Regularly: Yes Physical Activity Frequency: 3-4 Times per Week Seatbelt Use: always Sunscreen Use: Yes Assistive Devices: None Review of Systems Review of Systems: All systems reviewed & are unremarkable except as noted in HPI & below Physical Exam Constitutional: WD/WN, vitals as above Eyes: PERRL, conjunctivae normal, anicteric sclerae Neck: trachea midline, no thyromegaly Respiratory: normal respiratory effort; no respiratory distress and no labored breathing Cardiovascular: Rate/Rhythm: regular rate and regular rhythm Gastrointestinal (Abdomen): Inspection/Auscultation: abdomen normal to inspection; abdomen not distended Percussion/Palpation: abdomen soft; abdomen nontender, no guarding and abdomen not rigid Skin: no rashes, warm and dry Psychiatric: A+Ox3, euthymic affect Results & Data Vital Signs (Past 12 Hours) Vital Signs Temp Pulse Pulse Resp BP BP Pulse Ox 04/20/24 13:37 71 19 120/74 97 04/20/24 12:35 85 20 128/72 95 04/20/24 10:38 98 04/20/24 09:51 36.4 C L 82 16 127/79 95 O2 Del Method 04/20/24 13:37 Room Air 04/20/24 12:35 Room Air 04/20/24 10:38 Room Air 04/20/24 09:51 Room Air Laboratory Results 04/20/24 04/20/24 Range/Units 12:40 10:40 WBC 7.69 (4.8-10.8) K/ul RBC 5.10 (4.70-6.10) M/uL Hgb 13.8 L (14.0-18.0) g/dl Hct 42.6 (42.0-52.0) % MCV 83.5 (80.0-100.0) fL MCH 27.1 (25.0-34.0) pg MCHC 32.4 (32.0-36.0) g/dL RDW Std Deviation 45.1 (36.4-46.3) fL RDW Coeff of Bette 14.9 H (11.5-14.5) % Plt Count 250 (130-400) K/uL MPV 9.1 L (9.4-12.4) fL Immature Gran % (Auto) 0.3 % Neut % (Auto) 65.8 % Lymph % (Auto) 17.2 % [place] % (Auto) 16.1 % Eos % (Auto) 0.3 % Baso % (Auto) 0.3 % Neut # (Auto) 5.07 (1.40-6.50) K/uL Lymph # (Auto) 1.32 (1.20-3.40) K/uL [place] # (Auto) 1.24 H (0.11-0.59) K/uL Eos # (Auto) 0.02 (0.00-0.50) K/uL Baso # (Auto) 0.02 (0.00-0.20) K/uL Immature Gran # (Auto) 0.02 (0.01-0.20) K/uL Sodium 137 (136-145) mmol/L Potassium 4.0 (3.5-5.1) mmol/L Chloride 102 (98-107) mmol/L Carbon Dioxide 29 (21-32) mmol/L Anion Gap 6 (3-11) BUN 15 (6-23) mg/dl Creatinine 0.90 (0.6-1.4) mg/dl Est Cr Clr Drug Dosing 81.1 ml/min Est GFR ( Amer) 101.4 ml/min Est GFR (Non-Af Amer) 87.5 ml/min BUN/Creatinine Ratio 16.7 (10-20) Glucose 124 H (70-99(Fasting)) mg/dl Calcium 8.7 (8.6-10.3) mg/dl Total Bilirubin 0.8 (0.2-1.0) mg/dl AST 19 (13-39) U/L ALT 17 (7-52) U/L Alkaline Phosphatase 34 (34-104) U/L Total Protein 6.6 (6.0-8.3) gm/dl Albumin 4.1 (3.4-5.0) gm/dl Globulin 2.5 (2.5-4.0) gm/dl Albumin/Globulin Ratio 1.6 (0.9-2) Lipase 16 (11-82) U/L Procalcitonin < 0.02 (0-0.5) ng/ml Urine Color Yellow Urine Appearance Clear (Clear) Urine pH 6.5 (4.5-7.5) Ur Specific [place] 1.010 (1.000-1.030) Urine Protein Negative (Negative) Urine Glucose (UA) Negative (Negative) Urine Ketones 1+ H (Negative) Urine Blood Negative (Negative) Urine Nitrite Negative (Negative) Urine Bilirubin Negative (Negative) Urine Urobilinogen Negative (Negative) Ur Leukocyte Esterase Negative (Negative) Diagnostic Findings ABDOMEN AND PELVIS CT WITH IV CONTRAST CT DOSE: 1299.28 mGy.cm HISTORY: MID ABD PAIN, BLOATING X 3 DAYS TECHNIQUE: Multiaxial CT images of the abdomen and pelvis were performed following the use of intravenous contrast. A dose lowering technique was utilized adhering to the principles of ALARA. COMPARISON STUDY: Abdomen and pelvis CT 08/12/2023. FINDINGS: The lung bases are clear. No pneumoperitoneum. No pneumatosis. No acute fractures. The liver, gallbladder, pancreas, spleen, adrenal glands, and kidneys are within normal limits. There are few small left peripelvic renal cysts noted. No hydronephrosis. The main portal vein is patent. Mild calcified plaque within the normal caliber abdominal aorta. No retroperitoneal or pelvic l ymphadenopathy. Normal bladder. Trace pelvic free fluid. There is central mesenteric lymphadenopathy which is similar to the prior study. Dominant mesenteric lymph node on image 241 measures 2.7 x 1.7 cm although indeterminate this may be reactive. The majority of the colon is decompressed. Normal appendix. Multiple thickened and dilated loops of small bowel within the mid to lower abdomen with a focal transition point within the mid pelvis at a mid ileal loops on image 280. This is similar to the prior study. There is mesenteric fat stranding surrounding the thickened and dilated loops of small bowel. The small bowel is dilated up to 4.7 cm. There is a possible proximal transition point within the left mid abdomen on image 190. No mesenteric venous gas identified. IMPRESSION: 1. Multiple dilated and thickened loops of small bowel within the mid to lower abdomen with a focal tight transition point within the mid pelvis as described above. This is similar to the prior study and is consistent with a small bowel obstruction. The thickened loops of small bowel raise the possibility of a nonspecific enteritis. Underlying small bowel ischemia is considered less likely but not entirely excluded. No pneumatosis identified. 2. There is a questionable proximal transition point within the distended loops of small bowel at the left side of the abdomen. Therefore, a closed loop type obstruction remains in the differential diagnosis but is considered less likely. Surgical consultation recommended. 3. Central mesenteric lymphadenopathy, unchanged. 4. Additional findings as described above. ACT 112: Negative or not required by law.
[2024-04-20] MEDS ORDERED: PNEUMOCOCCAL VACCINE (PCV20) 20-VAL CONJ-DIP CRM/PF 0.5 ML SYR IM ONE (14:26)
[2024-04-20] MEDS: LACTATED RINGER'S 1,000 ML IV SCH (14:39)
[2024-04-20] MEDS: PANTOprazole 40 MG in SYRINGE 0 ML IV ONE (15:08)
[2024-04-20] MEDS: ACETAMINOPHEN 1,000 MG/100 ML VIAL IV PRN (17:19)
[2024-04-20] MEDS: MoRPHine SULFATE 2 MG/ML CARP IV PRN (23:39)
[2024-04-21] MEDS: LEVOTHYROXINE SODIUM 25 MCG TABLET PO SCH (05:58)
[2024-04-21 06:30] LABS: Basophils # (auto) 0.02 K/uL (0.00-0.20); Basophils % (auto) 0.3 %; Eosinophils # (auto) 0.05 K/uL (0.00-0.50); Eosinophils % (auto) 0.8 %; Hemoglobin 12.7 g/dl (14.0-18.0); Immature Granulocytes # (auto) 0.01 K/uL (0.01-0.20); Immature Granulocytes % (auto) 0.2 %; Lymphocytes # (auto) 1.51 K/uL (1.20-3.40); Lymphocytes % (auto) 25.2 %; Mean Corpuscular Hgb Conc 32.6 g/dL (32.0-36.0); Mean Platelet Volume 9.2 fL (9.4-12.4); Monocytes # (auto) 1.08 K/uL (0.11-0.59); Neutrophils # (auto) 3.33 K/uL (1.40-6.50); Neutrophils % (auto) 55.5 %; Platelet Count 202 K/uL (130-400); RDW Coefficient of Variation 14.8 % (11.5-14.5); RDW Standard Deviation 45.2 fL (36.4-46.3)
[2024-04-21 06:54] LABS: Albumin Globulin Ratio 1.6 (0.9-2); Albumin Level 3.6 gm/dl (3.4-5.0); BUN Creatinine Ratio 17.3 (10-20); Bilirubin,Total 0.9 mg/dl (0.2-1.0); Calcium 7.9 mg/dl (8.6-10.3); Creatinine Clr Calc Pharmacy 97.3 ml/min; Est GFR (African American) 109.2 ml/min; Est GFR (Non-African American) 94.3 ml/min; Globulin 2.2 gm/dl (2.5-4.0); Magnesium 1.9 mg/dl (1.7-2.4); Potassium 3.8 mmol/L (3.5-5.1); Total Protein 5.8 gm/dl (6.0-8.3)
[2024-04-21] MEDS: ROSUVASTATIN CALCIUM 5 MG TAB PO SCH (08:24)
--- NOTE | 2024-04-21 10:04 | Surgery Progress Note ---
Date of Service April 21, 2024 Assessment & Plan (1) Small bowel obstruction: (2) Enteritis: Plan resolving hx of similar obstruction in July 2023, no prior abdominal surgeries Plan: advance to clear liquids,advised to take slowly encourage ambulation continue medical management will need GI referral and outpatient evaluation for either small bowel follow through vs capsule endoscopy Discussed with Dr. calderon who agrees with above. Admission and Anticipated Discharge Date Admission Date: April 20, 2024 Supervising Physician Co-Signing Physician Notes I have seen and examined the patient personally and agree with the above assessment and plan. In brief, he continues to improve. His abdomen is soft, nontender. He is passing flatus and has no nausea. Will advance him to clear liquid diet. Will continue to monitor him while he is here. Subjective feeling better today cramping abdominal pain but less since early this morning passing gas no n,v Physical Exam Constitutional: WD/WN, vitals as above cooperative and comfortable; no acute distress and not ill appearing Respiratory: normal respiratory effort; no respiratory distress Gastrointestinal (Abdomen): Inspection/Auscultation: abdomen normal to inspection; abdomen not distended Percussion/Palpation: abdomen soft; abdomen nontender, no guarding, abdomen not rigid and abdomen not firm Skin: no rashes, warm and dry Psychiatric: A+Ox3, euthymic affect Results & Data Vital Signs (Past 12 Hours) Vital Signs Temp Pulse Pulse Resp BP Pulse Ox O2 Del Method 04/21/24 07:58 36.7 C 60 18 127/76 97 Room Air 04/21/24 07:34 60 04/21/24 03:04 36.7 C 64 16 119/63 96 Room Air 04/20/24 23:34 36.7 C 68 18 128/69 95 Room Air 04/20/24 22:21 73 Laboratory Results 04/21/24 04/20/24 04/20/24 Range/Units 05:54 14:12 12:40 WBC 6.00 (4.8-10.8) K/ul RBC 4.70 (4.70-6.10) M/uL Hgb 12.7 L (14.0-18.0) g/dl Hct 39.0 L (42.0-52.0) % MCV 83.0 (80.0-100.0) fL MCH 27.0 (25.0-34.0) pg MCHC 32.6 (32.0-36.0) g/dL RDW Std Deviation 45.2 (36.4-46.3) fL RDW Coeff of Bette 14.8 H (11.5-14.5) % Plt Count 202 (130-400) K/uL MPV 9.2 L (9.4-12.4) fL Immature Gran % (Auto) 0.2 % Neut % (Auto) 55.5 % Lymph % (Auto) 25.2 % [place] % (Auto) 18.0 % Eos % (Auto) 0.8 % Baso % (Auto) 0.3 % Neut # (Auto) 3.33 (1.40-6.50) K/uL Lymph # (Auto) 1.51 (1.20-3.40) K/uL [place] # (Auto) 1.08 H (0.11-0.59) K/uL Eos # (Auto) 0.05 (0.00-0.50) K/uL Baso # (Auto) 0.02 (0.00-0.20) K/uL Immature Gran # (Auto) 0.01 (0.01-0.20) K/uL Sodium 138 (136-145) mmol/L Potassium 3.8 (3.5-5.1) mmol/L Chloride 105 (98-107) mmol/L Carbon Dioxide 27 (21-32) mmol/L Anion Gap 6 (3-11) BUN 13 (6-23) mg/dl Creatinine 0.75 (0.6-1.4) mg/dl Est Cr Clr Drug Dosing 97.3 ml/min Est GFR ( Amer) 109.2 ml/min Est GFR (Non-Af Amer) 94.3 ml/min BUN/Creatinine Ratio 17.3 (10-20) Glucose 107 H (70-99(Fasting)) mg/dl Lactate 0.9 (0.4-2.0) mmol/L Calcium 7.9 L (8.6-10.3) mg/dl Magnesium 1.9 (1.7-2.4) mg/dl Total Bilirubin 0.9 (0.2-1.0) mg/dl AST 133 H (13-39) U/L ALT 99 H (7-52) U/L Alkaline Phosphatase 97 D (34-104) U/L Total Protein 5.8 L (6.0-8.3) gm/dl Albumin 3.6 (3.4-5.0) gm/dl Globulin 2.2 L (2.5-4.0) gm/dl Albumin/Globulin Ratio 1.6 (0.9-2) Lipase (11-82) U/L Procalcitonin (0-0.5) ng/ml Urine Color Yellow Urine Appearance Clear (Clear) Urine pH 6.5 (4.5-7.5) Ur Specific [place] 1.010 (1.000-1.030) Urine Protein Negative (Negative) Urine Glucose (UA) Negative (Negative) Urine Ketones 1+ H (Negative) Urine Blood Negative (Negative) Urine Nitrite Negative (Negative) Urine Bilirubin Negative (Negative) Urine Urobilinogen Negative (Negative) Ur Leukocyte Esterase Negative (Negative) 04/20/24 Range/Units 10:40 WBC 7.69 (4.8-10.8) K/ul RBC 5.10 (4.70-6.10) M/uL Hgb 13.8 L (14.0-18.0) g/dl Hct 42.6 (42.0-52.0) % MCV 83.5 (80.0-100.0) fL MCH 27.1 (25.0-34.0) pg MCHC 32.4 (32.0-36.0) g/dL RDW Std Deviation 45.1 (36.4-46.3) fL RDW Coeff of Bette 14.9 H (11.5-14.5) % Plt Count 250 (130-400) K/uL MPV 9.1 L (9.4-12.4) fL Immature Gran % (Auto) 0.3 % Neut % (Auto) 65.8 % Lymph % (Auto) 17.2 % [place] % (Auto) 16.1 % Eos % (Auto) 0.3 % Baso % (Auto) 0.3 % Neut # (Auto) 5.07 (1.40-6.50) K/uL Lymph # (Auto) 1.32 (1.20-3.40) K/uL [place] # (Auto) 1.24 H (0.11-0.59) K/uL Eos # (Auto) 0.02 (0.00-0.50) K/uL Baso # (Auto) 0.02 (0.00-0.20) K/uL Immature Gran # (Auto) 0.02 (0.01-0.20) K/uL Sodium 137 (136-145) mmol/L Potassium 4.0 (3.5-5.1) mmol/L Chloride 102 (98-107) mmol/L Carbon Dioxide 29 (21-32) mmol/L Anion Gap 6 (3-11) BUN 15 (6-23) mg/dl Creatinine 0.90 (0.6-1.4) mg/dl Est Cr Clr Drug Dosing 81.1 ml/min Est GFR ( Amer) 101.4 ml/min Est GFR (Non-Af Amer) 87.5 ml/min BUN/Creatinine Ratio 16.7 (10-20) Glucose 124 H (70-99(Fasting)) mg/dl Lactate (0.4-2.0) mmol/L Calcium 8.7 (8.6-10.3) mg/dl Magnesium (1.7-2.4) mg/dl Total Bilirubin 0.8 (0.2-1.0) mg/dl AST 19 (13-39) U/L ALT 17 (7-52) U/L Alkaline Phosphatase 34 (34-104) U/L Total Protein 6.6 (6.0-8.3) gm/dl Albumin 4.1 (3.4-5.0) gm/dl Globulin 2.5 (2.5-4.0) gm/dl Albumin/Globulin Ratio 1.6 (0.9-2) Lipase 16 (11-82) U/L Procalcitonin < 0.02 (0-0.5) ng/ml Urine Color Urine Appearance (Clear) Urine pH (4.5-7.5) Ur Specific [place] (1.000-1.030) Urine Protein (Negative) Urine Glucose (UA) (Negative) Urine Ketones (Negative) Urine Blood (Negative) Urine Nitrite (Negative) Urine Bilirubin (Negative) Urine Urobilinogen (Negative) Ur Leukocyte Esterase (Negative)
[2024-04-21] MEDS: PANTOprazole 40 MG in SYRINGE 0 ML IV SCH (11:44)
--- NOTE | 2024-04-21 15:29 | Hospitalist Progress Note ---
Date of Service April 21, 2024 Assessment & Plan (1) Small bowel obstruction: Plan: Present to the ED with progressive upper abdominal pain/cramping with poor oral intake since 04/18/2024 No recent episodes of nausea/vomiting, passing gas as of this a.m. CT abdomen pelvis with IV contrast notes signs consistent previous small bowel obstruction, cannot rule out additional enteritis at this time General Surgery on board Unclear etiology of recurrent small bowel obstruction as patient does not have a previous history abdominal procedures, would recommend continuing to monitor central lymphadenopathy which has been stable since previous CT of the abdomen pelvis Conservatively being managed Closing procalcitonin is a negative Clinically improving Advancing diet slowly Consider discharge tomorrow completely normal provided tarry swallow. (2) Enteritis: Plan: Patient noted to have thickened loops of small bowel raising the possibility of nonspecific enteritis, underlying small bowel ischemia is considered less likely but not entirely excluded Denies recent fever, chills, diarrhea WBC is within normal limits, will hold antibiotics at this time Lactate and procalcitonin levels negative Discontinue IV fluids General Surgery on board. Recommends GI follow-up outpatient to consider capsule endoscopy or small bowel follow-through (3) Hypercholesteremia: Plan: Resume statin when able (4) Hypothyroidism: Plan: Resume levothyroxine when able Plan Noted that the LFTs went up. Reactional? Recheck LFTs in AM. Admission and Anticipated Discharge Date Admission Date: April 20, 2024 Subjective Patient feels well overall. Says that his pain has improved. His belly is no more distended. He is passing gas but has not had a bowel movement yet. Review of Systems Review of Systems: All systems reviewed & are unremarkable except as noted in Subjective Physical Exam Physical Exam: General: Awake, conversant Heart: S1, S2/regular rate and rhythm, no murmur rubs or gallops Lungs: Clear to auscultation bilaterally. Normal effort Abdomen: Soft/nontender/nondistended. No hepatosplenomegaly. Sluggish bowel sounds Extremities: No clubbing/cyanosis. No edema Behavior: Appropriate, cooperative Results & Data Results & Data Vital Signs (Past 12 Hours) Vital Signs Temp Pulse Pulse Resp BP Pulse Ox Pulse Ox 04/21/24 14:39 94 04/21/24 11:48 36.8 C 61 18 131/74 94 04/21/24 07:58 36.7 C 60 18 127/76 97 04/21/24 07:40 04/21/24 07:34 60 O2 Del Method O2 Del Method 04/21/24 14:39 Room Air 04/21/24 11:48 Room Air 04/21/24 07:58 Room Air 04/21/24 07:40 Room Air 04/21/24 07:34 Laboratory Results Abnormal lab results 04/21/24 Range/Units 05:54 Hgb 12.7 L (14.0-18.0) g/dl Hct 39.0 L (42.0-52.0) % RDW Coeff of Bette 14.8 H (11.5-14.5) % MPV 9.2 L (9.4-12.4) fL [place] # (Auto) 1.08 H (0.11-0.59) K/uL Glucose 107 H (70-99(Fasting)) mg/dl Calcium 7.9 L (8.6-10.3) mg/dl AST 133 H (13-39) U/L ALT 99 H (7-52) U/L Total Protein 5.8 L (6.0-8.3) gm/dl Globulin 2.2 L (2.5-4.0) gm/dl PG Care Time/CCT Total # of Minutes Spent Total Time Spent with Patient: Total time spent is greater than 50% in coordination of care (as documented) at patient's floor/unit and/or counseling patient: Coding Level of Care Code 92167 SUB INP/OBS CARE 2/35MIN Diagnoses Small bowel obstruction K56.609 Enteritis K52.9 Hypercholesteremia E78.00 Hypothyroidism E03.9
[2024-04-22 08:06] VITALS: PULSE 66; RESP 18; TEMP 97.8; O2SAT 96
[2024-04-22 08:12] LABS: Basophils # (auto) 0.03 K/uL (0.00-0.20); Basophils % (auto) 0.6 %; Eosinophils # (auto) 0.12 K/uL (0.00-0.50); Eosinophils % (auto) 2.5 %; Hematocrit (blood only) 39.3 % (42.0-52.0); Hemoglobin 13.2 g/dl (14.0-18.0); Immature Granulocytes # (auto) 0.02 K/uL (0.01-0.20); Immature Granulocytes % (auto) 0.4 %; Lymphocytes # (auto) 1.64 K/uL (1.20-3.40); Lymphocytes % (auto) 34.5 %; Mean Corpuscular Hemoglobin 27.6 pg (25.0-34.0); Mean Corpuscular Hgb Conc 33.6 g/dL (32.0-36.0); Monocytes # (auto) 0.49 K/uL (0.11-0.59); Monocytes % (auto) 10.3 %; Neutrophils # (auto) 2.46 K/uL (1.40-6.50); Neutrophils % (auto) 51.7 %; Platelet Count 241 K/uL (130-400); RDW Coefficient of Variation 14.7 % (11.5-14.5); RDW Standard Deviation 44.2 fL (36.4-46.3); Red Blood Count 4.79 M/uL (4.70-6.10); White Blood Count 4.76 K/ul (4.8-10.8)
[2024-04-22 08:29] LABS: Albumin Globulin Ratio 1.6 (0.9-2); Albumin Level 3.9 gm/dl (3.4-5.0); BUN Creatinine Ratio 12.3 (10-20); Bilirubin,Total 0.5 mg/dl (0.2-1.0); Calcium 8.6 mg/dl (8.6-10.3); Creatinine Clr Calc Pharmacy 90.1 ml/min; Est GFR (African American) 105.8 ml/min; Est GFR (Non-African American) 91.3 ml/min; Globulin 2.5 gm/dl (2.5-4.0); Magnesium 2.1 mg/dl (1.7-2.4); Potassium 4.1 mmol/L (3.5-5.1); Total Protein 6.4 gm/dl (6.0-8.3)
--- NOTE | 2024-04-22 09:23 | Surgery Progress Note ---
Date of Service April 22, 2024 Assessment & Plan (1) Small bowel obstruction: (2) Enteritis: Plan resolving hx of similar obstruction in July 2023, no prior abdominal surgeries Plan: advance to reg diet, recommend low fiber diet for 1-2 weeks, smaller more frequent meals will need GI referral and outpatient evaluation for either small bowel follow through vs capsule endoscopy vs push enteroscopy. Recommend push CT scan images to [facility] [address] for GI to review. Discussed with Dr. calderon who agrees with above. Admission and Anticipated Discharge Date Admission Date: April 20, 2024 Subjective feeling well abdominal cramping resolved, no abdominal pain no n,v tolerating advancing diet + bowel movement last evening and passing gas Physical Exam Constitutional: WD/WN, vitals as above cooperative and comfortable; no acute distress and not ill appearing Respiratory: normal respiratory effort; no respiratory distress and no labored breathing Gastrointestinal (Abdomen): Inspection/Auscultation: abdomen normal to inspection; abdomen not distended Percussion/Palpation: abdomen soft; abdomen nontender, no guarding, abdomen not rigid and abdomen not firm Skin: no rashes, warm and dry Psychiatric: A+Ox3, euthymic affect Results & Data Vital Signs (Past 12 Hours) Vital Signs Temp Pulse Resp BP Pulse Ox O2 Del Method 04/22/24 08:05 36.6 C 66 18 128/75 96 Room Air 04/21/24 23:13 36.7 C 69 16 118/57 L 99 Room Air Laboratory Results 04/22/24 Range/Units 07:37 WBC 4.76 L (4.8-10.8) K/ul RBC 4.79 (4.70-6.10) M/uL Hgb 13.2 L (14.0-18.0) g/dl Hct 39.3 L (42.0-52.0) % MCV 82.0 (80.0-100.0) fL MCH 27.6 (25.0-34.0) pg MCHC 33.6 (32.0-36.0) g/dL RDW Std Deviation 44.2 (36.4-46.3) fL RDW Coeff of Bette 14.7 H (11.5-14.5) % Plt Count 241 (130-400) K/uL MPV 9.0 L (9.4-12.4) fL Immature Gran % (Auto) 0.4 % Neut % (Auto) 51.7 % Lymph % (Auto) 34.5 % [place] % (Auto) 10.3 % Eos % (Auto) 2.5 % Baso % (Auto) 0.6 % Neut # (Auto) 2.46 (1.40-6.50) K/uL Lymph # (Auto) 1.64 (1.20-3.40) K/uL [place] # (Auto) 0.49 (0.11-0.59) K/uL Eos # (Auto) 0.12 (0.00-0.50) K/uL Baso # (Auto) 0.03 (0.00-0.20) K/uL Immature Gran # (Auto) 0.02 (0.01-0.20) K/uL Sodium 140 (136-145) mmol/L Potassium 4.1 (3.5-5.1) mmol/L Chloride 105 (98-107) mmol/L Carbon Dioxide 31 (21-32) mmol/L Anion Gap 4 (3-11) BUN 10 (6-23) mg/dl Creatinine 0.81 (0.6-1.4) mg/dl Est Cr Clr Drug Dosing 90.1 ml/min Est GFR ( Amer) 105.8 ml/min Est GFR (Non-Af Amer) 91.3 ml/min BUN/Creatinine Ratio 12.3 (10-20) Glucose 108 H (70-99(Fasting)) mg/dl Calcium 8.6 (8.6-10.3) mg/dl Magnesium 2.1 (1.7-2.4) mg/dl Total Bilirubin 0.5 (0.2-1.0) mg/dl AST 62 H (13-39) U/L ALT 86 H (7-52) U/L Alkaline Phosphatase 109 H (34-104) U/L Total Protein 6.4 (6.0-8.3) gm/dl Albumin 3.9 (3.4-5.0) gm/dl Globulin 2.5 (2.5-4.0) gm/dl Albumin/Globulin Ratio 1.6 (0.9-2)
--- NOTE | 2024-04-22 10:53 | Discharge Summary ---
Date of Service April 22, 2024 Admission HPI Per Admitting Provider Fredy is a 69-year-old male with past medical history significant for peripheral neuropathy HTN, HLD, GERD, hypothyroidism, and previous small bowel obstruction who presented to the [facility] ED on 04/20/2024 due to recurrent abdominal pain and poor oral intake. He remained stable in the ED. Labs including CBC, CMP, and lipase were unremarkable. UA shows 1+ ketones but is otherwise unremarkable. CT of the abdomen pelvis with IV contrast was read as multiple dilated and thickened loops of small bowel within the mid to lower abdomen with a focal tight transition point was in the mid pelvis as described above. This is similar to the prior study and is consistent with a small bowel obstruction. The thickened loops of small bowel raise the possibility of a nonspecific enteritis. Small bowel ischemia is considered less likely but not entirely excluded. No pneumatosis identified. There is a questionable proximal transition point within the distended loops of a small bowel at the left side of the abdomen. Therefore a closed-loop type obstruction remains in the differential diagnosis but is considered less likely. Surgical consultation recommended. Central mesenteric lymphadenopathy, unchanged. Prior to admission the patient was given 20 mg IM dicyclomine, 20 mg IV famotidine, and 1 L normal saline. Patient was sitting in bed in no acute distress at time of exam with his bedside, history is obtained from both. Patient started developing bilateral upper abdominal pain/cramping on 04/18/2024. Since then has had a decreased appetite but denies nausea/vomiting, diarrhea. Pain will be intermittent in the upper abdomen with a 8/10 at its worst. Pain does not radiate other than the upper abdomen. No recent fever or chills, chest pain, shortness of breath, palpitations, hematemesis, dysuria, hematuria, melena, lower extremity swelling, recent trauma. Patient was still passing gas as of this morning and confirms that discomfort today is significantly improved compared to his admission in July 2023 for his first small bowel obstruction. They confirm that he does not have a history of previous abdominal surgeries, his is concerned for the unknown cause of the small bowel obstruction. He explains that he took all of his a.m. medications today prior to arrival except for his olmesartan as he has been weaning off this due to recurrent low blood pressures. He is a full code and want his to make medical decisions for him if cannot make himself. Please refer to Dr. Arreguin's attestation for any changes to the treatment plan Admission Exam Per Admitting Provider General: In no acute distress, stated age, well-nourished, good hygiene HEENT: Normocephalic, atraumatic, no scleral icterus, pupils around round, symmetrical, and reactive to light, moist mucus membranes, trachea midline, no thyromegaly Chest/Pulm: No respiratory distress, symmetrical chest expansion, clear breath sounds throughout Cardiac: RRR, no murmurs noted Abdomen: Negative for ascites and bruising, hypoactive bowel sounds, soft, nontender to percussion throughout, mildly tender to palpation in the bilateral upper abdominal dee without rebound tenderness, otherwise none tender on palpation Musculoskeletal: Symmetrical and without signs of acute trauma, upper and lower extremities with full ROM, no atrophy, spasticity, or flaccidity Extremities: Radial, dorsalis pedis, and posterior tibial pulses are intact and symmetrical, no edema noted in the BL LE's Skin: Warm, dry, no rashes , lesions, or scars noted Neuro: Alert and oriented to person, place, month, year, and president, no focal defects, no tremors noted Psych: No acute distress, calm and cooperative during the exam Principal Diagnosis Recurrent small bowel obstruction of unclear etiology with no history of prior abdominal procedures Elevated liver enzymes Discharge Exam General: Awake, conversant Heart: S1, S2/regular rate and rhythm, no murmur rubs or gallops Lungs: Clear to auscultation bilaterally. Normal effort Abdomen: Soft/nontender/nondistended. No hepatosplenomegaly. Sluggish bowel sounds Extremities: No clubbing/cyanosis. No edema Behavior: Appropriate, cooperative Discharge Data Allergies Allergy/AdvReac Type Severity Reaction Status Date / Time hydrochlorothiazide Allergy Unknown Rash Verified 04/19/24 16:09 amoxicillin [From Augmentin] AdvReac Rash Unverified 04/19/24 16:09 clavulanic acid AdvReac Rash Unverified 04/19/24 16:09 [From Augmentin] Consultations 04/20/24 13:12 ED Decision to Admit Stat 04/20/24 13:24 Consult General Surgery Routine Ordered Studies 04/20/24 10:29 CT abd pelvis IV con only Stat Hospital Course (1) Small bowel obstruction: Present to the ED with progressive upper abdominal pain/cramping with poor oral intake since 04/18/2024 No recent episodes of nausea/vomiting, passing gas as of this a.m. CT abdomen pelvis with IV contrast notes signs consistent previous small bowel obstruction, cannot rule out additional enteritis at this time General Surgery on board Unclear etiology of recurrent small bowel obstruction as patient does not have a previous history abdominal procedures, would recommend continuing to monitor central lymphadenopathy which has been stable since previous CT of the abdomen pelvis Conservatively being managed Clinically improving Patient is now tolerating a solid diet Discharge to home today Patient will need to follow-up with GI to consider capsule endoscopy and small bowel follow-through outpatient has a clear etiology of recurrent bowel obstruction has not been found.. He would like to see [facility] GI outpatient. Nurse navigator informed. (2) Enteritis: Patient noted to have thickened loops of small bowel raising the possibility of nonspecific enteritis, underlying small bowel ischemia is considered less likely but not entirely excluded Denies recent fever, chills, diarrhea WBC is within normal limits, will hold antibiotics at this time Lactate and procalcitonin levels negative General Surgery on board. Recommends GI follow-up outpatient to consider capsule endoscopy or small bowel follow-through (3) Hypercholesteremia: Hold statin because of elevated LFTs. (4) Hypothyroidism: Resume levothyroxine when able Plan Noted that the LFTs went up. Hold statin. This will need to be worked up outpatient. A repeat LFTs may be obtained first to see if the numbers have come down. Total Time Total Time Spent Total Time Spent (In Minutes): 35 Discharge Plan Discharge Items Patient Disposition: Home - Self-Care Reason For Visit: ABD PAIN, SBO Discharge Diagnosis: Recurrent small bowel obstruction of unclear etiology with no history of prior abdominal procedures Elevated liver enzymes Activity: Resume your previous activity Non-emergency contact: Primary Care Provider Call non-emergency contact if: you have any medication questions and your symptoms worsen Follow-up/Referrals: Ingrid Roberts MD [Primary Care Provider] - 05/01/24 3:00 pm Diet: Heart Healthy Addtl Attending Provider Instructions: Advised to follow-up with PCP in 1 week You will need a referral to GI from your PCP. You may need further workup like a capsule endoscopy and a small bowel follow-through done outpatient to find the cause of your recurrent obstructions Pending Studies at Discharge: No Stand-Alone Forms: My [facility] Medications and DC Order Prescriptions: Continued levothyroxine 25 mcg tablet 25 mcg PO DAILY Qty: 90 3RF olmesartan 20 mg tablet 10 mg PO DAILY Qty: 30 2RF gabapentin 300 mg capsule 300 mg PO HS PRN (Reason: neuropathy) Rx Instructions: TAKE 1 CAPSULE BY MOUTH AT BEDTIME NEEDED FOR NEUROPATHY Held rosuvastatin 5 mg tablet 5 mg PO DAILY Qty: 90 3RF Hold Instructions: Resume on 05/06/24. Hold until PCP evaluation Discharge Orders: Discharge Order (Routine); Ordered 04/22/24 Ordered By: Agapito Puente Admission Data Admit Date/Time: 04/20/24 13:11 Attending Provider: Agapito Puente Admit Provider: Alex Arreguin Primary Care Provider: Ingrid Roberts Other Providers: Alex Arreguin; Clark Ward Other Interventions: Discharge Summary Assessment (RN) Last Done: 04/22/24 11:33
[2024-04-22 11:34] VITALS: BP 130/75
== END 2024-04-22 12:23 | disposition home or self-care (01) | DRG 390 ==
LOC: ED 09:48 → 2W 13:11 → SUATTDRO 13:11 → 2W 13:37